=== PATIENT | male | born 1950 | race Caucasian/White ===

== ENCOUNTER 2020-09-17 09:23 | Emergency (ER) | payer OTHER, SELFPAY ==
[2020-09-17 09:29] VITALS: BP 152/92; PULSE 69; RESP 18; TEMP 36.7; O2SAT 97
--- NOTE | 2020-09-17 09:29 | W.ED.GENAD ---
Discharge Plan Disposition Patient Disposition: HOME Condition: Stable Discharge Details Clinical Impression: Viral URI with cough Primary Care Provider: Valentino Bravo ED Provider: Gracia Crandall Home Meds and New Rx's Prescriptions: New benzonatate [Tessalon Perles] 100 mg capsule 100 mg PO TID PRN (Reason: cough) Qty: 14 RF: 0 amoxicillin-pot clavulanate [Augmentin] 875-125 mg tablet 1 tab PO BID 10 Days Qty: 20 RF: 0 No Action multivitamin Tablet 1 tab PO QAM RF: 0 metoprolol succinate 50 mg Tablet Extended Release 24 Hr 50 mg PO DAILY RF: 0 aspirin [Aspir-81] 81 mg Tablet,Delayed Release (Dr/Ec) 81 mg PO DAILY RF: 0 opkxlmiq-axqu-hlw2-C-garry-bosw [Glucosamine-Chondroitin 3X] 750-625-30 mg Tablet 1 tab PO DAILY RF: 0 Discharge Instructions Instructions: Upper Respiratory Infection (ED), Acute Cough (ED) Additional Instructions: Drink plenty of fluids and get plenty of rest. Take the Tessalon Perles as needed and directed for coughing. If you have no relief or worsening of symptoms in the next few days, you can start the antibiotics. Follow-up with your primary care doctor in 1 week. Return to the emergency department with any worsening or new concerning symptoms. Discharge Data Discharge Physician: Gracia Crandall Medical Decision Making 70-year-old male with a history of atrial fibrillation, hypertension, hyperlipidemia presents for nasal congestion, rhinorrhea, productive cough, intermittent chest tightness and shortness of breath with left-sided abdominal pain which is now resolved for the past few days. Mainly concerned about his symptoms affecting his elderly hssksg-gz-ekr who lives with him. Patient appears nontoxic. He has slightly diminished breath sounds throughout but no rhonchi or wheezing. Suspect most likely viral illness. As pt c/o LUQ abd pain which is now resolved, consider LLL pneumonia. Considering his age and history, will obtain an EKG. Will also obtain a COVID swab. If all unremarkable, recommend symptomatic treatment for likely viral illness with fluids, rest and Tessalon Perles. EKG notes a rate of 63, sinus with no acute ST-T wave ischemic findings. Chest x-ray reviewed and negative. Patient reassessed and still remains comfortable and denies any chest pain or shortness of breath or abdominal pain at this time. Discussed that this is likely viral process. We will send home with Augmentin if symptoms worsen and Tessalon Perles for cough. Advised to follow up with the primary care doctor for re-evaluation. Usual and customary return precautions given prior to discharge. Medical Records Medical records reviewed: Yes I reviewed the patient's medical records. Imaging Data Radiologic Study: Radiologist's impression: XR PORTABLE CHEST AP CLINICAL HISTORY: cough, chills, r/o pneumonia. TECHNIQUE: 2D digital imaging was performed. COMPARISON: No exams were available for comparison FINDINGS: Mild cardiomegaly.. The mediastinum is not widened. There are no infiltrates nor pleural effusions. No pulmonary edema. No pneumothorax. IMPRESSION: No acute pulmonary findings on this single AP portable view of the chest. Mild cardiomegaly. No pulmonary edema. ECG Data Attestation: I personally reviewed and interpreted this ECG (s) as follows: Interpretation: Rate of 63, sinus, no acute ST elevation or depression. AZ 201. QRS 127. QTc 421. HPI General Mode of arrival: ambulatory. Date/Time Provider Initiated Documentation: 09/17/20 09:24. Limitations to Documentation: no limitations. Information obtained by: patient. HPI Narrative: Patient is a 70-year-old male with a history of atrial fibrillation, hypertension, hyperlipidemia presents for nasal congestion and runny nose, productive cough, intermittent shortness of breath and chest tightness and intermittent left-sided abdominal pain for the past 2 to 3 days. He denies any abdominal pain at present. Patient states his symptoms started with nasal congestion and then progressed to cough. She also states he has had a diminished appetite and loose stools. He admits to chills but denies any known fever. He states he has been coughing up sputum but has not looked at the color. He states he was mainly concerned about his symptoms as his elderly bchjec-ep-fpg lives with him and he did not want to get him sick. He states he is followed at the OR. He denies any headache, neck pain, vomiting, loss of sense of smell or taste. Related Data Home Medications Medication Instructions Recorded Confirmed amoxicillin-pot clavulanate 1 tab PO BID 10 Days #20 tab 09/17/20 [Augmentin] aspirin [Aspir-81] 81 mg PO DAILY 09/17/20 09/17/20 benzonatate [Tessalon Perles] 100 mg PO TID PRN #14 cap 09/17/20 rhzwihha-hdmy-fqy2-C-garry-bosw 1 tab PO DAILY 09/17/20 09/17/20 [Glucosamine-Chondroitin 3X] metoprolol succinate 50 mg PO DAILY 09/17/20 09/17/20 multivitamin 1 tab PO QAM 09/17/20 09/17/20 Previous Rx's Medication Instructions Recorded amoxicillin-pot clavulanate 1 tab PO BID 10 Days #20 tab 09/17/20 [Augmentin] benzonatate [Tessalon Perles] 100 mg PO TID PRN #14 cap 09/17/20 Allergies Allergy/AdvReac Type Severity Reaction Status Date / Time morphine AdvReac shakey Unverified 09/17/20 09:37 Review of Systems All systems reviewed & are unremarkable except as noted in HPI and below Constitutional Constitutional: Reports as per HPI, Denies chills and Denies fever(s) Eyes Eyes: Denies blurry vision ENT Ears, Nose, Mouth, and Throat: Denies dizziness, Denies sore throat and Denies throat swelling Cardiovascular Cardiovascular: Denies chest pain and Reports dyspnea Respiratory Respiratory: Reports cough and Reports dyspnea Gastrointestinal Gastrointestinal: Denies abdominal pain, Denies diarrhea and Denies vomiting Genitourinary Genitourinary: Denies hematuria and Denies dysuria Musculoskeletal Musculoskeletal: Denies back pain and Denies numbness Integumentary/Breasts Skin/Breast: Denies lesions and Denies rash Neurologic Neurologic: Denies dizziness, Denies localized weakness and Denies numbness Allergic/Immunologic Allergic/Immunologic: Denies throat swelling [facility] Medical History (Updated 09/17/20 @ 11:19 by Gracia Crandall DO) Atrial fibrillation High cholesterol HTN (hypertension) Surgical History (Updated 09/17/20 @ 10:10 by Gracia Crandall DO) History of hernia repair History of tonsillectomy Social History Smoking/Tobacco Use Status: Never Smoking risk assessment performed?: Yes Alcohol Intake: current Alcohol Intake frequency: 0-2 drinks per day Drug use: Never Do you feel safe at home: Yes Do you feel safe in your relationship?: Yes Exam Const General: cooperative, healthy appearing and no acute distress Orientation: alert, awake and oriented x3 HENMT Head: normal to inspection Ears: hearing grossly normal bilaterally, external ears normal and TM's normal bilaterally General nose exam: external nose normal Face and sinus: normal facial exam Mouth: oral mucosae normal Teeth and gingiva: dentition normal Throat: posterior oropharynx normal Eyes General: appearance normal, both eyes and all related structures Eyelids: eyelids normal EOM: EOM intact bilaterally Neck Neck: normal visual inspection Lymphatic: no lymphadenopathy noted Chest Chest: normal inspection of the chest Resp Effort & Inspection: normal respiratory effort and able to speak in complete sentences Auscultation: diminished lung sounds bilaterally throughout (slightly diminished throughout) Cardio Rate: regular rate Rhythm: regular rhythm GI Inspection: normal to inspection Palpation: soft, not firm, no guarding, no hepatosplenomegaly, no masses and nontender Auscultation: normal bowel sounds Back/Spine/Pelvis Thoracic/Lumbar Spine: thoracic and lumbar spine normal to inspection Skin General skin exam: no rashes or lesions noted Neuro General: patient alert and patient awake Cognition: normal cognition Speech: speech normal Gait: normal gait Motor: muscle tone normal throughout Sensory Exam: no sensory deficits noted Extrem General: normal to inspection, full ROM, capillary refill normal and no edema Psych Appearance: grossly normal Mental Status: mental status grossly normal Speech and Movement: speech and movement normal Affect: normal affect Thought Process: normal
--- NOTE | 2020-09-17 09:45 | DI.RAD_ITS ---
EXAM: XR PORTABLE CHEST AP CLINICAL HISTORY: cough, chills, r/o pneumonia. TECHNIQUE: 2D digital imaging was performed. COMPARISON: No exams were available for comparison FINDINGS: Mild cardiomegaly.. The mediastinum is not widened. There are no infiltrates nor pleural effusions. No pulmonary edema. No pneumothorax. IMPRESSION: No acute pulmonary findings on this single AP portable view of the chest. Mild cardiomegaly. No pulmonary edema. DATA REPOSITORY: RADIATION DOSE DELIVERED:
--- NOTE | 2020-09-17 09:45 | RT.EKG_ITS ---
APPROVED REPORT Exam: Resting ECG Patient Location: E HR:63 bpm ECG Measurements Heart Rate 63 AXIS WI 201 P 47 QRSd 127 QRS -33 QT 412 T 13 QTc 421 Conclusion Sinus rhythm...normal P axis, V-rate 60- 99 Nonspecific intraventricular conduction delay...QRSd >115mS, not LBBB/RBBB I have reviewed and interpreted ECG and agree with software generated interpretation.
[2020-09-17 11:38] VITALS: BP 152/92; PULSE 69; RESP 18; TEMP 36.7; O2SAT 97
--- OUTSIDE RECORDS SUMMARY | 2020-09-17 11:42 | XMS_ITS | Encounter Summary ---
:1950 Author Organization Department [facility] Address [address] [place] [id number] Care Team Providers Name Role Phone BUCKY RABAGO Primary Care Provider Unavailable Insurance Providers: All historical and current Section Date Range: From patient's date of to the date document was created.This section includes the names of all active insurance providers for the patient. Insurance Type of Plan Start of End of Group Member Insurance Policy P atient's Provider Coverage Name Policy Policy Number ID Provider's Shelby's Relationship Coverage Coverage Telephone Name to Policy Number Shelby MEDICARE MEDICARE PART Jul 15, PART A [id number] [phone] STEPHANIE JerriInder PATIENT (WNR) (M) A 2016 [id number] [place] MEDICARE MEDICARE PART Jul 15, PART A [id number] [phone] STEPHANIE GuthrieInder PATIENT (WNR) (M) A 2016A 1 [place] MEDICARE MEDICARE PART Jul 15, PART A [id number] STEPHANIE JerriW PATIENT (WNR) (M) A 2016A 1 ILLIAM Selected Encounter This section includes the information on record at [place] for the Encounter. Date/Time Encounter Type Encounter Description Reason Provider Source Nov 16, 2019 09:32 Outpatient Encounter TELEPHONE/MEDICINE AM IHE Encounter Template Text not used by [place] Plan of Treatment: Future Appointments (+ 6 months) and Future Tests (+/- 45 days) The Plan of Treatment section includes future care activities for the patient from all [place] treatment facilities. This section includes future appointments and future orders which are active, pending or scheduled.Future Appointments This section includes appointments that were scheduled to occur 6 months from the date of the Encounter, up to a maximum of 20 appointments. The data comes from all [facility]. Appointment Date/Time Appointment Type Appointment Facili ty Name Apr 04, 2020 09:30 AM AMBULATORY - MEDICINE [facility] Apr 26, 2020 11:30 AM AMBULATORY - NONE [facility] Pathology Reports: +/- 30 days of the encounter Pathology Reports For cases when an order for pathology services may have been completed prior to the date of the Encounter, the report list includes the Pathology Reports that were completed up to 30 days before date of the Encounter. For cases when an order for pathology services may have been completed after the date of the Encounter, the report list also includes the Pathology Reports that were completed up to 30 days after date of the Encounter. The data comes from all [facility] facilities. Date/Time Pathology Report Provider Source Nov 16, 2019 01:54 PM LR SURGICAL PATHOLOGY REPORT: RADHA MOSER Trina LOCAL TITLE: LR SURGICAL PATHOLOGY REPORT [facility] STANDARD TITLE: PATHOLOGY REPORT DATE OF NOTE: NOV 16, 2019@13:54:10 ENTRY DATE: NOV 16, 2019@13:54:10 AUTHOR: RADHA MOSER EXP COSIGNER: URGENCY: STATUS: COMPLETED $APHDR Reporting Lab: [facility] [CLIA# [id number]] [address], [place] [phone] - - - - - - - - - - - - - - - - - - - - - - - - - - - - - - - - - - - - - - - - MEDICAL RECORD SURGICAL PATHOLOGY - - - - - - - - - - - - - - - - - - - - - - - - - - - - - - - - - - - - - - - - PATHOLOGY REPORT Accession No. SP [id number] - - - - - - - - - - - - - - - - - - - - - - - - - - - - - - - - - - - - - - - - $TEXT Submitted by: CHRISTINE HAYNES Date obtained: Nov 15, 2019 11:49 - - - - - - - - - - - - - - - - - - - - - - - - - - - - - - - - - - - - - - - - Specimen (Received Nov 15, 2019 11:50): 2mm REMNANT; C - ADENOMA? - - - - - - - - - - - - - - - - - - - - - - - - - - - - - - - - - - - - - - - - BRIEF CLINICAL HISTORY: None given - - - - - - - - - - - - - - - - - - - - - - - - - - - - - - - - - - - - - - - - PREOPERATIVE DIAGNOSIS: None given - - - - - - - - - - - - - - - - - - - - - - - - - - - - - - - - - - - - - - - - OPERATIVE FINDINGS: None given - - - - - - - - - - - - - - - - - - - - - - - - - - - - - - - - - - - - - - - - POSTOPERATIVE DIAGNOSIS: Surveillance Surgeon/physician: SEBASTIEN HAYNES MD =-=-=-=-=-=-=-=-=-=-=-=-=-=- =-=-=-=-=-=-=-=-=-=-=-=-=-=-=-=-=-=-=-=-=-=-=-=-=-= - - - - - - - - - - - - - - - - - - - - - - - - - - - - - - - - - - - - - - - - PATHOLOGY REPORT Accession No. SP [id number] - - - - - - - - - - - - - - - - - - - - - - - - - - - - - - - - - - - - - - - - GROSS DESCRIPTION: Name Label: Grady Villegas Paperwork: Grady Villegas Cassette: [id number]---[id number],WILLIAM--405 Specimen is labeled: 1 C Received in formalin is a piece of glisteni ng pale gallegos tissue, 0.4 x 0.1 x 0.1 cm. Submitted entirely in 1 cassette [id number]---[id number],WILLIAM--405 11/15/2019 Microscopic exam: DIAGNOSIS: Cecum, biopsy: Mucosa with mild reactive changes, negative for remnants of adenomatous polyp The attending pathologist whos e signature appears on this report has reviewed all diagnostic slides and has edit ed the gross and/or microscopic portion of this report in rende ring the final pathologic diagnosis. [address] [address] CPT: 03191 /elizaebth/ RADHA MOSER pathologist Signed Nov 16, 2019@13:54 Performing Laboratory: Surgical Pathology Report Performed By: [facility] [CLIA# [id number]] [address] [place] [phone] $FTR - - - - - - - - - - - - - - - - - - - - - - - - - - - - - - - - - - - - - - - - (End of report) RADHA MOSER MD ars Date Nov 16, 2019 - - - - - - - - - - - - - - - - - - - - - - - - - - - - - - - - - - - - - - - - GRADY VILLEGAS STANDARD FORM 515 ID:[id number] SEX:M :1950 AGE: 69 LO C:SDM END PC P: Bucky Rabago DO /elizabeth/ RADHA MOSER pathologist Signed: 11/16/2019 13:54 Encounter Notes: All associated encounter notes This section contains the clinical notes associated to the Encounter. Date/Time Encounter Note(s) Provider Source Nov 16, 2019 09:32 AM TELEPHONE ENCOUNTER NOTE: VIMAL AUSTIN LOCAL TITLE: POST-OP TELEPHONE NOTE [facility] STANDARD TITLE: TELEPHONE ENCOUNTER NOTE DATE OF NOTE: NOV 16, 2019@09:32 ENTRY DATE: NOV 16, 2019@09:32:17 AUTHOR: CUBA AUSTIN EXP COSIGNER: URGENCY: STATUS: COMPLETED Work Phone:NONE Cell Date of Procedure:11/15/2019 Procedure:colonoscopy Message was left for patient Yes: on home number unable to leave detailed message on cell Provider notified regarding patient condition? N o Comment: Does the patient have procedural pain? IV Site Pain,drainage,redness or swelling? Comments: Gastrointestinal Tolerating regular diet Nausea or vomiting Bowel movement Pain,bleeding,diarrhea Comment: /elizabeth/ CUBA AUSTIN RN Signed: 11/16/2019 09:41
--- OUTSIDE RECORDS SUMMARY | 2020-09-17 11:42 | XMS_ITS | Encounter Summary ---
:1950 Author Organization Department [facility] Address [address] [place] [id number] Care Team Providers Name Role Phone BUCKY [...] MEDICARE MEDICARE PART Jul 15, PART A [id number] STEPHANIE JerriInder PATIENT (WNR) (M) A 2016 [id number] [place]LL[place] MEDICARE MEDICARE PART Jul 15, PART A [id number] [phone] STEPHANIE JerriInder PATIENT (WNR) (M) A 2016 86A 1 [place] MEDICARE MEDICARE PART Jul 15, PART A [id number] STEPHANIE JerriW PATIENT (WNR) (M) A 2016 86A 1 ILLIAM Selected Encounter This section includes the information on record at [place] for the Encounter. Date/Time Encounter Type Encounter Reason Provider Source Description Nov 16, 2019 01:54 Outpatient EVENT (HISTORICAL) OWEN MOSER AN R PM Encounter [facility] Encounter Template Text not used by [place] Plan of Treatment: Future Appointments (+ 6 months) and Future Tests (+/- 45 days) The Plan of Treatment section includes future care activities for the patient from all [place] treatment facilities. This section includes future appointments and future orders which are active, pending or scheduled.Future Appointments This section includes appointments that were scheduled to occur 6 months from the date of the Encounter, up to a maximum of 20 appointments. The data comes from all [facility]. Appointment Date/Time Appointment Type Appointment Facili ty Name Apr 04, 2020 09:30 AM AMBULATORY - MEDICINE [facility] Apr 26, 2020 11:30 AM AMBULATORY - NONE [facility] [place] Pathology Reports: +/- 30 days of the [...] the Encounter. The data comes from all [place] treatment facilities. Date/Time Pathology Report Provider Source Nov 16, 2019 01:54 PM LR SURGICAL PATHOLOGY REPORT: RADHA MOSER [facility] LOCAL TITLE: LR SURGICAL PATHOLOGY REPORT [facility] STANDARD TITLE: PATHOLOGY REPORT DATE OF NOTE: NOV 16, 2019@13:54:10 ENTRY DATE: NOV 16, 2019@13:54:10 AUTHOR: RADHA MOSER EXP COSIGNER: URGENCY: STATUS: COMPLETED $APHDR Reporting Lab: [facility] [CLIA# [id number]] [address], [place] [phone] - - - - - - - [...] Label: Grady Villegas Paperwork: Grady Villegas Cassette: [id number]---[id number],WILLIAM--405 Specimen is labeled: 1 C Received in formalin is a piece of glisteni ng pale gallegos tissue, 0.4 x 0.1 x 0.1 cm. Submitted entirely in 1 cassette [id number]---[id number],WILLIAM--405 11/15/2019 Microscopic exam: DIAGNOSIS: Cecum, biopsy: Mucosa with mild reactive changes, negative for remnants of adenomatous polyp The attending pathologist whos e signature appears on this report has reviewed all diagnostic slides and has edit ed the gross and/or microscopic portion of this report in rende ring the final pathologic diagnosis. [address] [address] CPT: 81919 /elizabeth/ RAHDA MOSER pathologist Signed Nov 16, 2019@13:54 Performing Laboratory: Surgical Pathology Report Performed By: [facility] [CLIA# [id number]] [address] [place] [phone] $FTR - - - - - - [...] - - GRADY VILLEGAS STANDARD FORM 515 ID:[id number] SEX:M :1950 AGE: 69 LO C:SDM END PC P: Bucky Rabago DO /elizabeth/ RADHA MOSER pathologist Signed: 11/16/2019 13:54 Encounter Notes: All associated encounter notes This section contains the clinical notes associated to the Encounter. Date/Time Encounter Note(s) Provider Source Nov 16, 2019 01:54 PM PATHOLOGY REPORT: RADHA MOSER [facility] LOCAL TITLE: LR SURGICAL PATHOLOGY REPORT [facility] STANDARD TITLE: PATHOLOGY REPORT DATE OF NOTE: NOV 16, 2019@13:54:10 ENTRY DATE: NOV 16, 2019@13:54:10 AUTHOR: RADHA MOSER EXP COSIGNER: URGENCY: STATUS: COMPLETED $APHDR Reporting Lab: [facility] [CLIA# [id number]] [address], [place] [phone] - - - - - - - [...] Label: Grady Villegas Paperwork: Grady Villegas Cassette: [id number]---[id number] Specimen is labeled: 1 C Received in formalin is a piece of glisteni ng pale gallegos tissue, 0.4 x 0.1 x 0.1 cm. Submitted entirely in 1 cassette [id number]---[id number],WILLIAM--405 11/15/2019 Microscopic exam: DIAGNOSIS: Cecum, biopsy: Mucosa with mild reactive changes, negative for remnants of adenomatous polyp The attending pathologist elysia e signature appears on this report has reviewed all diagnostic slides and has edit ed the gross and/or microscopic portion of this report in rende ring the final pathologic diagnosis. [address] [address] CPT: [id number] /elizabeth/ RADHA MOSER pathologist Signed Nov 16, 2019@13:54 Performing Laboratory: Surgical Pathology Report Performed By: [facility] TREJO [facility] [CLIA# [id number]] [address] [place] [phone] $FTR - - - - - - [...] - - GRADY VILLEGAS STANDARD FORM 515 ID:[id number] SEX:M :1950 AGE: 69 LO C:SDM END PC P: Bucky Rabago DO /elizabeth/ RADHA MOSER pathologist Signed: 11/16/2019 13:54
--- OUTSIDE RECORDS SUMMARY | 2020-09-17 11:42 | XMS_ITS | Encounter Summary ---
:1950 Author Organization Department [facility] Address [address] [place] [id number] Care Team Providers Name Role Phone HIMABUCKY Primary Care Provider Unavailable Insurance Providers: All [...] MEDICARE MEDICARE PART Jul 15, PART A [id number] Inder WADE PATIENT (WNR) (M) A 2016 [id number] 00 ILLIAM MEDICARE MEDICARE PART Jul 15, PART A [id number] KWABENAAURY JerriW PATIENT (WNR) (M) A 2016A 1 ILLIAM MEDICARE MEDICARE PART Jul 15, PART A [id number] STEPHANIE GuthrieW PATIENT (WNR) (M) A 2016A 1 ILLIAM Selected Encounter This section includes the information on record at [place] for the Encounter. Date/Time Encounter Type Encounter Description Reason Provider Source Apr 12, 2020 09:54 Outpatient Encounter TELEPHONE TRIAGE AM IHE Encounter Template Text not used by [facility] Plan of Treatment: Future Appointments (+ 6 months) and Future Tests (+/- 45 days) The Plan of Treatment section includes future care activities for the patient from all [place] treatment facilities. This section includes future appointments and future orders which are active, pending or scheduled.Future Appointments This section includes appointments that were scheduled to occur 6 months from the date of the Encounter, up to a maximum of 20 appointments. The data comes from all [facility]. Appointment Date/Time Appointment Type Appointment Facili ty Name Apr 26, 2020 11:30 AM AMBULATORY - NONE [facility] Jun 15, 2020 09:30 AM [facility] Jul 16, 2020 10:30 [facility] Jul 23, 2020 10:00 AM AM[facility]UL[facility]ORY - NONE [facility] Lab Results: +/- 30 days of the encounter This section includes the Chemistry and Hematology Lab Results on record with [place] for the patient. Radiology Reports and Pathology Reports are provided separately, in subsequent sections.Lab Results This section contains the Chemistry/Hematology Results that were resulted 30 days before or 30 days after the date of the Encounter. Date/Time Source Result Type Result - Unit Interpretation Reference Range Comment Apr 26, 2020 11:23 AM [facility] CBC NO DIFF Spe cimen Type: BLOOD No comment enter ed. Ordering Provide r: CINDA GODWIN Report Released Date/Time: Oct 05, 2019 03:19 PM Reporting Lab: [facility] [address] [facility] [address] Performing Lab: [facility] [address] [facility] [address] WBC 6.1 10*3/uL 4.5-11.0 RBC 4.62 10*6/uL 4.23-5.66 HGB 15.4 g/dl 12.8-17 HEMATOCRIT 46.7 % 39.2-50.4 MCV 101.1 fl H 82-99 MCH 33.3 pg H 26.2-32.6 MCHC 33.0 g/dl 30.8-35.1 PLT 220 10*3/uL 140-360 MPV 11.1 fl 9.2-12.4 RDW 12.1 % 12.0-16.0 Apr 26, 2020 11:23 [facility] P4 GLU,BUN,CREAT,LYTES,CA Spe cimen Type: PLASMA AM [facility] No comment enter ed. Ordering Provide r: CINDA GODWIN Report Released Date/Time: Oct 05, 2019 03:19 PM Reporting Lab: [facility] [address] [facility] [address] Performing Lab: [facility] [address] [facility] [address] UREA NITROGEN 30 mg/dL H 7-25 SODIUM 139 mmol/L 135-145 POTASSIUM 4.1 mmol/L 3.5-5.0 CHLORIDE 106 mmol/L 100-110 CARBON DIOXIDE 26 mmol/L 20-30 ANION GAP 7 mmol/L 4-16 GLUCOSE 102 mg/dL H 65-100 CREATININE 0.84 mg/dl 0.5-1.5 CALCIUM 9.1 mg/dL 8.5-10.5 eGFR 91 mL/min >60 Apr 26, 2020 11:23 AM [facility] LIVER PROFILE Spe cimen Type: PLASMA No comment enter ed. Ordering Provide r: CITLALICINDA P Report Released Date/Time: Oct 05, 2019 03:19 PM Reporting Lab: [facility] [address] [facility] [address] Performing Lab: [facility] [address] [facility] [address] PROTEIN, TOTAL 6.7 g/dL 6.0-8.5 ALBUMIN 3.9 g/dL 3.2-5.0 BILIRUBIN, TOTAL 0.9 mg/dL 0.2-1.2 ALKALINE PHOSPHATASE 53 U/L 40-150 ALT(SGPT) 23 U/L 7-52 AST(SGOT) 26 U/L 5-34 FIB-4 SCORE 1.65 INDEX <2.67 Apr 26, 2020 11:23 [facility] LIPOPROTEIN CHOLESTEROL Speci men Type: PLASMA AM [facility] FRACT. PANEL No comment enter ed. Ordering Provide r: VOCINDA P Report Released Date/Time: Oct 05, 2019 03:19 PM Reporting Lab: [facility] [address] [facility] [address] Performing Lab: [facility] [address] [facility] [address] CHOLESTEROL 151 mg/dL 0-199 TRIGLYCERIDE 122 mg/dL 0-149 HDL CHOLESTEROL 49 mg/dL >40 LDL CHOLESTEROL (CALC) 78 mg/dl 0-129 Apr 26, 2020 T[place] GLYCOHEMOGLOBIN (A1C Specimen Ty pe: BLOOD 11:23 AM [facility] ONLY) Comment: Refere nce Ranges: 4.0 - 5.6 normal 5.7 - 6.4 pre-diabetes >=6.5% diabetic range. If patient has Not Been diagnosed see [place]-D[place] Diabetes Guidelines for more guidance. http://www.healthquality.[place].gov/g harish/CD/shea youngblood/ Target A1C values should be individualized. Better understanding of A1C test result accuracy is essential if clinicians are to interpret results for Veterans, and discuss treatmen t options throug h the process of Shared Decision Making. Testing performed by [facility] certified [employer]. The Busby HgA1c assay should not be used to diagnose or monitor diabetes in patients with altered red cell lifespan such as homozygous hemoglobin variant Hb SC, HbF >5% and hemolytic anemia Heterozygous hemoglobin variants do not affect this assay, HbAS, HbAC, HbAD, HbAE, HbA2. Ordering Provide r: CINDA GODWIN Report Released Date/Time: Oct 05, 2019 03:19 PM Reporting Lab: [facility] [address] [facility] [address] Performing Lab: [facility] [address] [facility] [address] HEMOGLOBIN A1C 5.0 % 4.0-5.6 Encounter Notes: All associated encounter notes This section contains the clinical notes associated to the Encounter. Date/Time Encounter Note(s) Provider Source Apr 12, 2020 09:54 AM ADMINISTRATIVE NOTE: AYUSH ALAMO [facility] LOCAL TITLE: Has Admin Note STANDARD TITLE: ADMINISTRATIVE NOTE DATE OF NOTE: APR 12, 2020@09:54 ENTRY DATE: APR 12, 2020@09:54:11 AUTHOR: AYUSH ALAMO EXP COSIGNER: URGENCY: STATUS: COMPLETED Reason for call Clinic Name: [facility] 1st call lab appt is needed Apr 19 per RTC /elizabeth/ AYUSH ALAMO MSA Signed: 04/12/2020 09:55
--- OUTSIDE RECORDS SUMMARY | 2020-09-17 11:42 | XMS_ITS ---
:1950 Author Organization [facility] Address [address] [place] [address] Care Team Providers Name Role Phone BUCKY [...] MEDICARE MEDICARE PART Jul 15, PART A [id number] BULLAURY JerriInder PATIENT (WNR) (M) A 2016 [id number] 00 ILLIA MEDICARE MEDICARE PART Jul 15, PART A [id number] B[place]OC KW PATIENT (WNR) (M) A 2016A 1 [place]LL[place] MEDICARE MEDICARE PART Jul 15, PART A [id number] BULLOC KW PATIENT (WNR) (M) A 2016A 1 ILLIAM Selected Encounter This section includes the information on record at [place] for the Encounter. Date/Time Encounter Type Encounter Reason Provider Source Description Apr 04, 2020 OFFICE OR OTHER PRIMARY ICD-10-CM E78.5 ARCENIO RABAGO 09:30 AM OUTPATIENT VISIT CARE/MEDICINE Hyperlipidemia, AEL FOR THE unspecified with EVALUATION AND Provider Comments: MANAGEMENT OF AN HLD - ESTABLISHED Hyperlipidemia (SCT PATIENT, WHICH [id number]) REQUIRES AT LEAST 2 OF THESE 3 GUILLEN COMPONENTS: A DETAILED HISTORY; A DETAILED EXAMINATION; MEDICAL DECISION MAKING OF MODERATE COMPLEXITY. COUNSELING AND/OR COORDINATION OF CARE WITH OTHER PHYSICIANS, OTHER QUALIFIED HEALTH CLINICAL PARTNER, OR AGENCIES ARE PROVIDED CONSISTENT WITH THE NATURE OF THE PROBLEM(S) AND THE PATIENT'S AND/OR FAMILY'S NEEDS. USUALLY, THE PRESENTING PROBLEM(S) ARE OF MODERATE TO HIGH SEVERITY. TYPICALLY, 25 MINUTES ARE SPENT [id number] WITH THE PATIENT AND/OR FAMILY. [facility] Encounter Template Text not used by [facility] Assessments - Encounter Diagnoses This section includes the primary and secondary diagnoses documented forthe Encounter. Date/Time Primary/Secondary Diagnosis Name Provider Source Diagnosis Apr 04, 2020 PRIMARY Hyperlipidemia, KYLEIGH RABAGOBU RY 04:31 PM unspecified [facility] Apr 04, 2020 SECONDARY Subsequent non-ST KYLEIGH RABAGO BURY 04:31 PM elevation (NSTEMI) [facility] myocardial infarction Apr 04, 2020 SECONDARY Thoracoabdominal KYLEIGH RABAGOB URY 04:31 PM aortic aneurysm, [facility] without rupture Apr 04, 2020 SECONDARY Unspecified atrial KYLEIGH RABAGO SBURY 04:31 PM fibrillation [facility] Plan of Treatment: Future Appointments (+ 6 months) and Future Tests (+/- 45 days) The Plan of Treatment section includes future care activities for the patient from all [place] treatment facilities. This section includes future appointments and future orders which are active, pending or scheduled.Future Appointments This section includes appointments that were scheduled to occur 6 months from the date of the Encounter, up to a maximum of 20 appointments. The data comes from all [facility]. Appointment Date/Time Appointment Type Appointment Facili ty Name Apr 26, 2020 11:30 AM AMBULATORY - NONE [facility] Jun 15, 2020 09:30 [facility] Jul 16, 2020 10:30 AM [facility]ORY - NONE [facility] Jul 23, 2020 10:00 AM AMBULATORY - NONE [facility] Lab Results: +/- 30 days of the encounter This section includes the Chemistry and Hematology Lab Results on record with [facility] for the patient. Radiology Reports and Pathology Reports are provided separately, in subsequent sections.Lab Results This section contains the Chemistry/Hematology Results that were resulted 30 days before or 30 days after the date of the Encounter. Date/Time Source Result Type Result - Unit Interpretation Reference Range Comment Apr 26, 2020 11:23 AM [facility] [facility] CBC NO DIFF Spe cimen Type: BLOOD No comment enter ed. Ordering Provide r: CINDA GODWIN Report Released Date/Time: Oct 05, 2019 03:19 PM Reporting Lab: [facility] [address] [facility] [address] Performing Lab: [facility] [address] [facility] [address] WBC 6.1 10*3/uL 4.5-11.0 RBC 4.62 10*6/uL 4.23-5.66 HGB 15.4 g/dl 12.8-17 HEMATOCRIT 46.7 % 39.2-50.4 MCV 101.1 fl H 82-99 MCH 33.3 pg H 26.2-32.6 MCHC 33.0 g/dl 30.8-35.1 PLT 220 10*3/uL 140-360 MPV 11.1 fl 9.2-12.4 RDW 12.1 % 12.0-16.0 Apr 26, 2020 11:23 [facility] [place] P4 GLU,BUN,CREAT,LYTES,CA Spe cimen Type: PLASMA AM [facility] No comment enter ed. Ordering Provide r: CINDA GODWIN Report Released Date/Time: Oct 05, 2019 03:19 PM Reporting Lab: [facility] [address] [facility] [address] Performing Lab: [facility] [address] [facility] [address] UREA NITROGEN 30 mg/dL H 7-25 SODIUM 139 mmol/L 135-145 POTASSIUM 4.1 mmol/L 3.5-5.0 CHLORIDE 106 mmol/L 100-110 CARBON DIOXIDE 26 mmol/L 20-30 ANION GAP 7 mmol/L 4-16 GLUCOSE 102 mg/dL H 65-100 CREATININE 0.84 mg/dl 0.5-1.5 CALCIUM 9.1 mg/dL 8.5-10.5 eGFR 91 mL/min >60 Apr 26, 2020 11:23 AM [facility] LIVER PROFILE Spe cimen Type: PLASMA No comment enter ed. Ordering Provide r: CINDA GODWIN Report Released Date/Time: Oct 05, 2019 03:19 PM Reporting Lab: [facility] [address] [facility] [address] Performing Lab: [facility] [address] [facility] [address] PROTEIN, TOTAL 6.7 g/dL 6.0-8.5 ALBUMIN 3.9 g/dL 3.2-5.0 BILIRUBIN, TOTAL 0.9 mg/dL 0.2-1.2 ALKALINE PHOSPHATASE 53 U/L 40-150 ALT(SGPT) 23 U/L 7-52 AST(SGOT) 26 U/L 5-34 FIB-4 SCORE 1.65 INDEX <2.67 Apr 26, 2020 11:23 [facility] LIPOPROTEIN CHOLESTEROL Speci men Type: PLASMA AM [facility] FRACT. PANEL No comment enter ed. Ordering Provide r: CINDA GODWIN Report Released Date/Time: Oct 05, 2019 03:19 PM Reporting Lab: [facility] [address] [facility] [address] Performing Lab: [facility] [address] [facility] [address] CHOLESTEROL 151 mg/dL 0-199 TRIGLYCERIDE 122 mg/dL 0-149 HDL CHOLESTEROL 49 mg/dL >40 LDL CHOLESTEROL (CALC) 78 mg/dl 0-129 Apr 26, 2020 [facility] GLYCOHEMOGLOBIN (A1C Specimen Ty pe: BLOOD 11:23 AM [facility] ONLY) Comment: Refere nce Ranges: 4.0 - 5.6 normal 5.7 - 6.4 pre-diabetes >=6.5% diabetic range. If patient has Not Been diagnosed see [place]-DOD Diabetes Guidelines for more guidance. http://www.healthquality.va.gov/g uidelines/CD/shea shanteles/ Target A1C values should be individualized. Better understanding of A1C test result accuracy is essential if clinicians are to interpret results for Veterans, and discuss treatmen t options throug h the process of Shared Decision Making. Testing performed by [employer] certified [employer]. The [employer] HgA1c assay should not be used to diagnose or monitor diabetes in patients with altered red cell lifespan such as homozygous hemoglobin variant Hb SC, HbF >5% and hemolytic anemia Heterozygous hemoglobin variants do not affect this assay, HbAS, HbAC, HbAD, HbAE, HbA2. Ordering Provide r: CINDA GODWIN Report Released Date/Time: Oct 05, 2019 03:19 PM Reporting Lab: [facility] [address] [facility] [address] Performing Lab: [facility] [address] [facility] [address] HEMOGLOBIN A1C 5.0 % 4.0-5.6 Social History: Smoking Status (Most current) and Tobacco Use (All prior to encounter date) This section includes the most current, and the historical, smoking and tobacco-related health factors from the [place] facility where the Encounter took place.Current Smoking Status This section includes the most current smoking, or tobacco-related health factor, from the [place] facility where the Encounter took place. Date/Time Current Smoking Status Comment Facility Oct 04, 2019 10:30 AM [place]-TOBACCO NEVER USED [facility] Tobacco Use History This section includes a history of the smoking, or tobacco-related health factors, that were collected on or before the date of the Encounter. The data comes from the [place] facility where the Encounter took place. Date/Time Smoking Status/Tobacco Use Comment [facility] Apr 01, 2018 11:56 AM VA-TOBACCO FORMER USER [facility] Apr 01, 2018 11:56 AM VA-TOBACCO QUIT 15 YRS OR MORE [facility] Encounter Notes: All associated encounter notes This section contains the clinical notes associated to the Encounter. Date/Time Encounter Note(s) Provider Source Apr 27, 2020 04:00 PM PRIMARY CARE LETTERS: CINDA GODWIN [facility] LOCAL TITLE: [facility] PATIENT LAB RESULTS LETTER STANDARD TITLE: PRIMARY CARE LETTERS DATE OF NOTE: APR 27, 2020@16:00 ENTRY DATE: APR 27, 2020@16:00:16 AUTHOR: CINDA GODWIN EXP COSIGNER: URGENCY: STATUS: COMPLETED [facility] PATIENT LAB RESULTS LETTER Has ADDEND A DEPARTMENT OF [address], [address] [facility] [address] Phone: APR 27, 2020 MR. GRADY VILLEGAS [address] [place] [id number] Dear Mr. Villegas: We have received the results of your recent test s. Overall, your blood counts, blood sugar level, cholesterol levels, a nd kidney and liver functions are NORMAL. See below for full details. Please c all the clinic with any questions. Results: Collection time: Apr 26, 2020@11:23 Test Name Result Units Range --------- ------ ----- ----- HEMOGLOBIN A1C 5.0 % 4.0 - 5.6 Test Name Result Units Range --------- ------ ----- ----- WBC 6.1 10*3/uL 4.5 - 11.0 RBC 4.62 10*6/uL 4.23 - 5.66 HGB 15.4 g/dl 12.8 - 17 HEMATOCRIT 46.7 % 39.2 - 50.4 MCV 101.1H fl 82 - 99 MCH 33.3H pg 26.2 - 32.6 MCHC 33.0 g/dl 30.8 - 35.1 RDW 12.1 % 12.0 - 16.0 PLT 220 10*3/uL 140 - 360 MPV 11.1 fl 9.2 - 12.4 Test Name Result Units Range --------- ------ ----- ----- GLUCOSE 102H mg/dL 65 - 100 UREA NITROGEN 30H mg/dL 7 - 25 CREATININE 0.84 mg/dl 0.5 - 1.5 eGFR >60 mL/min Ref: >=60 SODIUM 139 mmol/L 135 - 145 POTASSIUM 4.1 mmol/L 3.5 - 5.0 CHLORIDE 106 mmol/L 100 - 110 CARBON DIOXIDE 26 mmol/L 20 - 30 ANION GAP 7 mmol/L 4 - 16 CALCIUM 9.1 mg/dL 8.5 - 10.5 PROTEIN, TOTAL 6.7 g/dL 6.0 - 8.5 ALBUMIN 3.9 g/dL 3.2 - 5.0 ALKALINE PHOSPHATASE 53 U/L 40 - 150 ALT(SGPT) 23 U/L 7 - 52 AST(SGOT) 26 U/L 5 - 34 FIB-4 SCORE 1.65 INDEX Ref: <=2.67 BILIRUBIN, TOTAL 0.9 mg/dL 0.2 - 1.2 CHOLESTEROL 151 mg/dL 0 - 199 TRIGLYCERIDE 122 mg/dL 0 - 149 HDL CHOLESTEROL 49 mg/dL Ref: >=40 LDL CHOLESTEROL (CALC) 78 mg/dl 0 - 129 Sincerely, /elizabeth/ CINDA GODWIN D.O. Staff Physician 04/27/2020 ADDENDUM STATUS: COMPLETED Pls mail letter. SREEDHAR /elizabeth/ CINDA GODWIN D.O. Signed: 04/27/2020 16:05 Receipt Acknowledged By: 05/02/2020 08:36 /elizabeth/ CASEY JAUREGUI MSA Incoming Freight Clerk Apr 04, 2020 09:50 AM PRIMARY CARE NOTE: [facility] LOCAL TITLE: Primary Care Clinic Note STANDARD TITLE: PRIMARY CARE NOTE DATE OF NOTE: APR 04, 2020@09:50 ENTRY DATE: APR 04, 2020@09:50:58 AUTHOR: BUCKY RABAGO EXP COSIGNER: URGENCY: STATUS: COMPLETED PATIENT: Grady Villegas Age: 69 : 1950 Chief Complaint: f/u for BP HPI: 69 yo male presesnts to clinic for visit - he was supposed to be tele visit, but states he misunderstood instruction. he feels well and states he stopped taking losartan luna use he was concerned about safety of medication. his BP today is 113/74. he also states he walks about 3 miles most days of the week. he needs med refill. REVIEW OF SYSTEMS Other than complaints listed above, a 10 point r eview of systems is negative Alcohol [x] yes [] no 1 drink a day - advised to take tuesdays off Active problems - Computerized Problem List is t he source for the followin. Subsequent NSTEMI (non-ST segment elevation myocardial infarction) 2. HLD - Hyperlipidemia 3. AF- Atrial Fibrillation ([facility] [id number]) 4. CHF - Congestive heart failure 5. HTN - Hypertension ([facility] [id number]) Active Outpatient Medications (excluding Supplie s): Active Outpatient Medications Status 1) ATORVASTATIN CALCIUM 40MG TAB TAKE ONE TABL ET BY ACTIVE MOUTH EVERY DAY TO LOWER CHOLESTEROL 2) METOPROLOL SUCCINATE 50MG SA TAB TAKE ONE T ABLET BY ACTIVE MOUTH EVERY EVENING FOR BLOOD PRESSURE/HE ART NOTE TABLET STRENGTH/DIRECTIONS Active Non-VA Medications Status 1) Non-VA ASPIRIN 81MG EC TAB 81MG BY MOUTH EV ABRAHAM DAY ACTIVE 3 Total Medications Allergies: morphine Physical Exam Measurement DT BP PULSE WEIGHT POx LB(KG)[BMI ] (L/MIN)(%) 04/04/2020 09:30 113/74 60 175.4(79.5 6)[25] 95 Measurement DT PAIN 04/04/2020 09:30 0 GEN: no acute distress PSYCH: AAO x 3 NEURO: CNII through XII radhames sly intact without focal deficit, motor strength 5/5 and equal. sensation intact, DTRs 2/4 and equal, no pronator drift, (-) Romberg HEENT: PERRL, EOMI, no nystagmus, TMs visualized and appear normal, normal oropharynx NECK: Supple, (-) tenderness, (-) carotid bruit, (-) lymphadenopathy LUNGS: breath sounds present and clear throughou t HEART: Regular rate and rhythm, (-) murmur, (-) gallop THORAX: (-) CVA tenderness ABDOMEN: Soft, (-) tendernes s, (-) distension, (-) guarding, (-) rebound, bowel sounds present and normal EXT: (-) edema Assessment and Plan 1. HLD a. LDL = 88 (Mar 2019) 1. close to target b. atorvastatin 40mg qpm 1. this was reduced du e to muscle fatigue which is improved on lower dose 2. Aortic root and ascending aorta dilatation a. Aortic root dilated at 4.3 cm b. Moderately dilated ascending aorta at 4.7 cm 1. yearly surveillance 2. TTE each April - 2019 3. H/O Afib a. currently in sinus rhythm b. apixaban dc'd c. continue Metoprolol SA 50 mg qhs 3. H/O NSTEMI at time of presentation in afib wi th RVR (type II) a. ASA 81 mg qd b. BP control 1. Losartan 50mg daily - stopped losartan > BP = 113/74 2. Metoprolol succinate 50mg daily f/u 12 months I spent more than 50% of thi s encounter counseling the pt on the medical health issues listed above Outpt. Medication Reconciliation: Discrepancy Found - Med Rec Completed. DISCREPANCIES FOUND. The patient's medicat ion list/medication history to include Local Active VA Prescip tions, Remote Active VA Prescriptions, Non-VA Medications, Recentl y VA Prescriptions (90-180 days), Recently Discontinued VA Pr escriptions (90-180 days), and Pending Medication Orders where releva nt (e.g., patient is seen by multiple providers in the same day) was compared with CPRS and reviewed/discussed with the patient/caregi cynthia and reconciled for any discrepancies. A copy of this medication l ist was provided to the patient/caregiver. The patient/caregiver w as instructed to update this list, discard old lists, and take thi s to their next appointment, whether with a VA or non-VA p jairo. Any changes in medications and any medications discontinu ed are documented in this note. * Discrepancies were identified, and were addressed, and discussed with the patient/caregiver at this encounter and documented in the chart (this note). * All changes in medications, including a ll non-VA/Herbals/OTC medications were entered into CPRS, and documented in this note. * If there were any medications the patie nt should no longer take, they were discontinued. The discontinue d medications are documented in this note. * The patient/caregiver was instructed to update this list, discard old lists, and take this list to their next appointment, whether with a VA or non-VA provider. Discrepancy and action taken: medication r maryjo and updated /elizabeth/ BUCKY RABAGO Physician Signed: 04/04/2020 16:31
--- OUTSIDE RECORDS SUMMARY | 2020-09-17 11:42 | XMS_ITS | Encounter Summary ---
:1950 Author Organization Department [facility] Address [address] [place] [address] Care Team Providers Name Role Phone BUCKY [...] MEDICARE MEDICARE PART Jul 15, PART A [id number] STEPHANIE JerriInder PATIENT (WNR) (M) A 2016 [id number] ILLIAM MEDICARE MEDICARE PART Jul 15, PART A [id number] STEPHANIE JerriInder PATIENT (WNR) (M) A 2016 86A 1 ILLIAM MEDICARE MEDICARE PART Jul 15, PART A [id number] STEPHANIE JerriW PATIENT (WNR) (M) A 2016 86A 1 ILLIAM Selected Encounter This section includes the information on record at [place] for the Encounter. Date/Time Encounter Type Encounter Description Reason Provider Source Nov 15, 2019 08:48 Outpatient Encounter EVENT (HISTORICAL) AM IHE Encounter Template Text not used by [place] Plan of Treatment: Future Appointments (+ 6 [...] 20 appointments. The data comes from all [facility]. Appointment Date/Time Appointment Type Appointment Facili ty Name Apr 04, 2020 09:30 AM AMBULATORY - MEDICINE [facility] Apr 26, 2020 11:30 AM AMBULATORY - NONE [facility] Pathology Reports: +/- 30 days of [...] the Encounter. The data comes from all [place] treatment facilities. Date/Time Pathology Report Provider Source Nov 16, 2019 01:54 PM LR SURGICAL PATHOLOGY REPORT: RADHA MOSER [facility] LOCAL TITLE: LR SURGICAL PATHOLOGY REPORT [facility] STANDARD TITLE: PATHOLOGY REPORT DATE OF NOTE: NOV 16, 2019@13:54:10 ENTRY DATE: NOV 16, 2019@13:54:10 AUTHOR: RADHA MOSER EXP COSIGNER: URGENCY: STATUS: COMPLETED $APHDR Reporting Lab: [facility]AH BLAIR [facility] [CLIA# [id number]] [address] [place], [place] [address] - - - - - - - [...] Label: Grady Villegas Paperwork: Grady Villegas Cassette: [id number]---[id number],WILLIAM--405 Specimen is labeled: 1 C Received in formalin is a piece of glisteni ng pale gallegos tissue, 0.4 x 0.1 x 0.1 cm. Submitted entirely in 1 cassette [id number]---[id number],WILLIAM--405 11/15/2019 Microscopic exam: DIAGNOSIS: Cecum, biopsy: Mucosa with mild reactive changes, negative for remnants of adenomatous polyp The attending pathologist amis e signature appears on this report has reviewed all diagnostic slides and has edit ed the gross and/or microscopic portion of this report in rende ring the final pathologic diagnosis. [address] [address] CPT: 12934 /elizabeth/ RADHA MOSER pathologist Signed Nov 16, 2019@13:54 Performing Laboratory: Surgical Pathology Report Performed By: ALEAH TREJO [facility] [CLIA# [id number]] [address] [place] [phone] $FTR - - - - - - [...] - - GRADY VILLEGAS STANDARD FORM 515 ID:[id number] SEX:M :1950 AGE: 69 LO C:SDM END PC P: Bucky Rabago DO /elizabeth/ RADHA MOSER pathologist Signed: 11/16/2019 13:54
--- OUTSIDE RECORDS SUMMARY | 2020-09-17 11:42 | XMS_ITS | Encounter Summary ---
:1950 Author Organization Department [facility] Address [address] [place] [address] Care Team Providers Name Role Phone BUCKY [...] MEDICARE MEDICARE PART Jul 15, PART A [id number] STEPHANIE JerriInder PATIENT (WNR) (M) A 2016 [id number] ILLIAM MEDICARE MEDICARE PART Jul 15, PART A [id number] STEPHANIE JerriInder PATIENT (WNR) (M) A 2016A 1 ILLIAM MEDICARE MEDICARE PART Jul 15, PART A [id number] STEPHANIE JerriW PATIENT (WNR) (M) A 2016A 1 ILLIAM Selected Encounter This section includes the information on record at [place] for the Encounter. Date/Time Encounter Type Encounter Description Reason Provider Source Apr 04, 2020 09:32 Outpatient Encounter PRIMARY CARE/MEDICINE AM IHE Encounter Template Text not used by [place] Plan of Treatment: Future Appointments (+ 6 months) and Future Tests (+/- 45 days) The Plan of Treatment section includes future care activities for the patient from all [place] treatment facilities. This section includes future appointments and future orders which are active, pending or scheduled.Future Appointments This section includes appointments that were scheduled to occur 6 months from the date of the Encounter, up to a maximum of 20 appointments. The [facility] Appointment Date/Time Appointment Type Appointment Facili ty Name Apr 26, 2020 11:30 AM AMBULATORY - NONE [facility] Jun 15, 2020 09:30 AM [facility] Jul 16, 2020 10:30 AM AMBULATORY - NONE [facility] Jul 23, 2020 10:00 AM AMBULATORY - NONE [facility] Lab Results: +/- 30 days of [...] Range Comment Apr 26, 2020 11:23 AM [facility] CBC NO DIFF Spe cimen Type: BLOOD No comment enter ed. Ordering Provide r: CINDA GODWIN Report Released Date/Time: Oct 05, 2019 03:19 PM Reporting Lab: [facility] [address] [facility] [address] Performing Lab: [facility] [address] [facility] [address] WBC 6.1 10*3/uL 4.5-11.0 RBC 4.62 10*6/uL 4.23-5.66 HGB 15.4 g/dl 12.8-17 HEMATOCRIT 46.7 % 39.2-50.4 MCV 101.1 fl H 82-99 MCH 33.3 pg H 26.2-32.6 MCHC 33.0 g/dl 30.8-35.1 PLT 220 10*3/uL 140-360 MPV 11.1 fl 9.2-12.4 RDW 12.1 % 12.0-16.0 Apr 26, 2020 11:23 [facility] P4 GLU,BUN,CREAT,LYTES,CA Spe cimen Type: PLASMA AM [facility] No comment enter ed. Ordering Provide r: CINDA GODWIN Report Released Date/Time: Oct 05, 2019 03:19 PM Reporting Lab: [facility] [address] [facility] [address] Performing Lab: [facility] [address] [facility] [address] UREA NITROGEN 30 mg/dL H 7-25 SODIUM 139 mmol/L 135-145 POTASSIUM 4.1 mmol/L 3.5-5.0 CHLORIDE 106 mmol/L 100-110 CARBON DIOXIDE 26 mmol/L 20-30 ANION GAP 7 mmol/L 4-16 GLUCOSE 102 mg/dL H 65-100 CREATININE 0.84 mg/dl 0.5-1.5 CALCIUM 9.1 mg/dL 8.5-10.5 eGFR 91 mL/min >60 Apr 26, 2020 11:23 AM [facility] LIVER PROFILE Spe cimen Type: PLASMA No comment enter ed. Ordering Provide r: VO,CINDA P Report Released Date/Time: Oct 05, 2019 03:19 PM Reporting Lab: [facility] [address] [facility] [address] Performing Lab: [address] [address] PROTEIN, TOTAL 6.7 g/dL 6.0-8.5 ALBUMIN 3.9 g/dL 3.2-5.0 BILIRUBIN, TOTAL 0.9 mg/dL 0.2-1.2 ALKALINE PHOSPHATASE 53 U/L 40-150 ALT(SGPT) 23 U/L 7-52 AST(SGOT) 26 U/L 5-34 FIB-4 SCORE 1.65 INDEX <2.67 Apr 26, 2020 11:23 [facility] LIPOPROTEIN CHOLESTEROL Speci men Type: PLASMA AM [facility] FRACT. PANEL No comment enter ed. Ordering Provide r: VOCINDA P Report Released Date/Time: Oct 05, 2019 03:19 PM Reporting Lab: [facility] [address] [facility] [address] Performing Lab: [facility] [address] [facility] [address] CHOLESTEROL 151 mg/dL 0-199 TRIGLYCERIDE 122 mg/dL 0-149 HDL CHOLESTEROL 49 mg/dL >40 LDL CHOLESTEROL (CALC) 78 mg/dl 0-129 Apr 26, 2020 MESOPOTAMIA GLYCOHEMOGLOBIN (A1C Specimen Ty pe: BLOOD 11:23 AM [facility] ONLY) Comment: Refere nce Ranges: 4.0 - 5.6 normal 5.7 - 6.4 pre-diabetes >=6.5% diabetic range. If patient has Not Been diagnosed see [place]-D[place] Diabetes Guidelines for more guidance. http://www.healthquality.[place].gov/g harish/CD/shea rylie/ Target A1C values should be individualized. Better understanding of A1C test result accuracy is essential if clinicians are to interpret results for Veterans, and discuss treatmen t options throug h the process of Shared Decision Making. Testing performed by [facility] certified [employer]. The Busby HgA1c assay should not be used to diagnose or monitor diabetes in patients with altered red cell lifespan such as homozygous hemoglobin variant Hb SC, HbF >5% and hemolytic anemia Heterozygous hemoglobin variants do not affect this assay, HbAS, HbAC, HbAD, HbAE, HbA2. Ordering Provide r: CINDA GODWIN Report Released Date/Time: Oct 05, 2019 03:19 PM Reporting Lab: [facility] [address] [facility] [address] Performing Lab: [facility] [address] [facility] [address] HEMOGLOBIN A1C 5.0 % 4.0-5.6 Vital Signs: All taken on the encounter date This section contains inpatient and outpatient Vital Signs collected on the date of the Encounter. Date/Time Temperature Pulse Blood Respiratory SP02 Pain Height Weight Heber dy Source Pressure Rate Mass Index Apr 04, 98.4 F 60 113/74 95 % 0 70 in 175.4 25 WHITE 2019 09:30 /min mm[Hg] lb [facility] Encounter Notes: All associated encounter notes This section contains the clinical notes associated to the Encounter. Date/Time Encounter Note(s) Provider Source Apr 04, 2020 09:32 AM PRIMARY CARE ANNUAL EVALUATION NOTE: GIOVANNY CHARLES [facility] LOCAL TITLE: Preventive Health Annual Review STANDARD TITLE: PRIMARY CARE ANNUAL EVALUATION N OTE DATE OF NOTE: APR 04, 2020@09:32 ENTRY DATE: APR 04, 2020@09:32:16 AUTHOR: GIOVANNY JOE EXP COSIGNER: URGENCY: STATUS: COMPLETED Advance Directive Screen: Patient has an up-to-date Advance Directiv e document, but it is not on file at this [facility]. Patient has been re quested to forward a copy to his/her clinician. The patient received education about advan ce directives as well as written notification of his/her rights. Alcohol Use Screen (AUDIT-C) & F/U: Alcohol Screen: SCREEN FOR ALCOHOL (AUDIT-C) An alcohol screening test (AUDIT-C) wa s POSITIVE (score=4). At this score level (3 or 4 for women , 4 for men), no additional action is required but brief alcohol counseling would be beneficial. 1. How often did you have a drink containing alcohol in the past year? Four or more times a week 2. How many drinks containing alco hol did you have on a typical day when you were drinking in the past year? 1 or 2 3. How often did you have six or m ore drinks on one occasion in the past year? Never Depression Screening: PHQ-2+I9 Depression Screening Score: 0 The score on this administration is 0, which indicates a negative screen on the Depression Scal e over the past two weeks. Suicide Screening Score: 0 The results of this administration ind icates a NEGATIVE primary screen for Risk of Suicide ove r the last 2 weeks. Over the past two weeks, how often have you been bothered by the following problems? 1. Little interest or pleasure in do ing things Not at all 2. Feeling down, depressed, or hopel ess Not at all 3. Thoughts that you would be better off or of hurting yourself in some way Not at all /elizabeth/ GIOVANNY JOE Health Extruder Signed: 04/04/2020 09:34
--- OUTSIDE RECORDS SUMMARY | 2020-09-17 11:42 | XMS_ITS ---
:1950 Author Organization [facility] Address [address] [place] [address] Care Team Providers Name Role Phone HIMA BUCKY Primary Care Provider Unavailable Insurance Providers: All [...] MEDICARE MEDICARE PART Jul 15, PART A [id number] Inder WADE PATIENT (WNR) (M) A 2016 [id number] ILLIAM MEDICARE MEDICARE PART Jul 15, PART A [id number] BULLAURY K,W PATIENT (WNR) (M) A 2016A 1 ILLIA MEDICARE MEDICARE PART Jul 15, PART A [id number] BULLAURY K,W PATIENT (WNR) (M) A 2016A 1 ILLIAM Selected Encounter This section includes the information on record at [place] for the Encounter. 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 USUALLY, THE PRESENTING PROBLEM(S) ARE MINIMAL. TYPICALLY, 5 MINUTES ARE SPENT PERFORMING OR SUPERVISING THESE SERVICES. IHE Encounter Template Text not used by [place] Assessments - Encounter Diagnoses This section includes the primary and secondary diagnoses documented forthe Encounter. Date/Time Primary/Secondary Diagnosis Name Provider Source Diagnosis Nov 15, 2019 PRIMARY Encounter for other CHAU ALMANZAR 08:10 AM preprocedural D [facility] examination Plan of Treatment: Future Appointments (+ 6 [...] 20 appointments. The data comes from all [facility]. Appointment Date/Time Appointment Type Appointment Facili ty Name Apr 04, 2020 09:30 AM AMBULATORY - MEDICINE [facility] Apr 26, 2020 11:30 AM AMBULATORY - NONE [facility] Pathology Reports: +/- 30 days [...] the Encounter. The data comes from all [place] treatment facilities. Date/Time Pathology Report Provider Source Nov 16, 2019 01:54 PM LR SURGICAL PATHOLOGY REPORT: RADHA MOSER [facility] LOCAL TITLE: LR SURGICAL PATHOLOGY REPORT [facility] STANDARD TITLE: PATHOLOGY REPORT DATE OF NOTE: NOV 16, 2019@13:54:10 ENTRY DATE: NOV 16, 2019@13:54:10 AUTHOR: RADHA MOSER EXP COSIGNER: URGENCY: STATUS: COMPLETED $APHDR Reporting Lab: ALEAH BLAIR [facility] [CLIA# [id number]] [address] [place], [place] [address] - - - - - - - [...] GROSS DESCRIPTION: Name Label: Grady Villegas Paperwork: VillegasGrady bernardo Cassette: [id number]---[id number],WILLIAM--405 Specimen is labeled: 1 C Received in formalin is a piece of glisteni ng pale gallegos tissue, 0.4 x 0.1 x 0.1 cm. Submitted entirely in 1 cassette [id number]---[id number],WILLIAM--405 11/15/2019 Microscopic exam: DIAGNOSIS: Cecum, biopsy: Mucosa with mild reactive changes, negative for remnants of adenomatous polyp The attending pathologist amis jeremiah signature appears on this report has reviewed all diagnostic slides and has edit ed the gross and/or microscopic portion of this report in rende ring the final pathologic diagnosis. [address] [address] CPT: 47446 /elizabeth/ RADHA MOSER pathologist Signed Nov 16, 2019@13:54 Performing Laboratory: Surgical Pathology Report Performed By: ALEAH TREJO [facility] [CLIA# [id number]] [address] [place], [place] [address] $FTR - - - - - - - - - - - - - - - - - - - - - - - - - - - - - - - - - - - - - - - - (End of report) RADHA MOSER MD [facility] Date Nov 16, 2019 - - - - - - - - - - - - - - - - - - - - - - - - - - - - - - - - - - - - - - - - GRADY VILLEGAS STANDARD FORM 515 ID:[id number] SEX:M :1950 AGE: 69 LO C:SDM END PC P: Bucky Bravo DO /elizabeth/ RADHA MOSER pathologist Signed: 11/16/2019 13:54 Encounter Notes: All associated encounter notes This section contains the clinical notes associated to the Encounter. Date/Time Encounter Note(s) Provider Source Nov 15, 2019 10:13 AM NURSING NOTE: JUVENCIO GILBERTT LOCAL TITLE: PACU/Same Day Recovery Note [facility] STANDARD TITLE: NURSING NOTE DATE OF NOTE: NOV 15, 2019@10:13 ENTRY DATE: NOV 15, 2019@10:13:16 AUTHOR: JUVENCIO GILBERT EXP COSIGNER: URGENCY: STATUS: COMPLETED GI Recovery COLONOSCOPY Medication used: Fentanyl: 150 Midazolam: 4 Time of last medication: 0935 Reversal medication used No Tolerated the procedure Yes LOC: Alert, Orientated Tolerating PO fluid Yes adan ashely Nausea/Vomiting: No Vitals: T98.0, p74, R16, Bp 136/80, O297, 0/10 pain LOP: 0/10 pain Vitals at time of Discharge: T98.1, p62, R18, BP 139/91, O298, 0/10 pain LOP: 0/10 pain *Verbalizes understanding of D/C instructions Yes Transportation: AMBULATION Patient have a Radio Frequency Technician? Yes Responsible Drivers Name: Ade Villegas francenancy jeremiah Time of Discharge: 1040 DISCHARGE TIME: 1040 *IV SITE: Gauge: #22 IV catheter discontinued prior to discharge Reviewed d/c instructions with pt. and pt. verb alized understanding. PIV removed #22 right wrist. Pt discharged home fro m PACU recovery at 1040 in stable condition. The pt. left with helicopter mechanic y of d/c instructions and all personal belongings. /elizabeth/ JUVENCIO GILBERT RN Signed: 11/15/2019 10:23 Nov 15, 2019 07:53 AM NURSING OUTPATIENT OPERATIVE NOTE: Tess ALMANZAR Trina LOCAL TITLE: Same Day Nursing Progress Note [facility] STANDARD TITLE: NURSING OUTPATIENT OPERATIVE NOT E DATE OF NOTE: NOV 15, 2019@07:53 ENTRY DATE: NOV 15, 2019@07:53:53 AUTHOR: CHAU ALMANZAR EXP COSIGNER: URGENCY: STATUS: COMPLETED Same Day Nursing Health History Pre-op Visit Interview via:In Person Pre procedure Date: Pts. Telephone #: Procedure Date: 11/15/19 Procedure: colonoscopy Diagnosis/Reason for Procedure: h/o polpys Notify in Emergency: Ade- Contact Nu mber: Responsible Adult Radio Frequency Technician: Ade- Waiting at [place]? YES If no, Contact #: Help available at home if necessary? YES Who: Ade Physician: Tonio Time of last Food/Fluids: Last ate 11/13/19. Ochoa glover drank 11/15/19 at 0330 Age: 69 Vital Signs: Temperature:97.3 Blood Pressure: 154/84 Pulse: 79 Pulse Oximetry:98% RA Respiration: 18 Height: 70 in Weight: 182.6 lb Lung Sounds:CTA bilaterally Heart Sounds:regular rhythm Bladder Scan/PVR Result:N/A Pain present? NO Loose Teeth: NO Dentures:no Bridges: NO Glasses/contact lenses: NO Hearing Aids:NO Prosthesis/Implants: NO Assist with ADLS: NO Living Will/Durable Power of Cost Coordinator: YES Info. Given: DECLINES Jewish: No Preference Mentation/Behavior: alert and oriented x 3 SUBSTANCE USE Current Alcohol Use: YES Amount: 1 glass wine ryann y Former Tobacco Use: YES AMOUNT: QUIT DATE/YE AR:1972 Former Chewing Tobacco Use: NO Former Marijuana use: NO Former Cocaine use: NO Former Heroin use: NO MEDICAL HISTORY: 1. Subsequent NSTEMI (non-ST segment elevatio n myocardial infarction) 2. HLD - Hyperlipidemia 3. AF- Atrial Fibrillation ([facility] [id number]) 4. CHF - Congestive heart failure 5. HTN - Hypertension ([facility] [id number]) Allergies:MORPHINE Diabetes:NO Musculoskeletal Problems: NO Neurological Problems: NO Peripheral Vascular Disease: NO Skin Intact: Heart Disease: YES Previous AK: YES 8- no issues since Angina/CP: NO If Yes, Last Episode: High BP: YES Lung Disease: NO Elimination Problems: NO Is there any Violence/Abuse (verbal/physical) in your life? NO Does the patient have any visible signs of tra alba or bruising? NO SURGICAL HISTORY (previous surgery/anesthesia) : s/p cardiac cath, s/p colonosocpy, s/p bilateral inguinal hernia, s/ p tonsillectomy Patient denies history of problems with sedati on or anesthesia Yes if no add comments: CURRENT MEDICATIONS: 1) ATORVASTATIN CALCIUM 40MG TAB TAKE ONE TA BLET BY ACTIVE MOUTH EVERY DAY TO LOWER CHOLESTEROL 2) COLON ELECTROLYTE LAVAGE PWD FOR CAROLINAN HANNAH E 1 GALLON ACTIVE BY MOUTH DIRECTED - DO NOT START COL ONOSCOPY PREPARATION UNTIL YOU ARE CONTACTED BY THE GASTROENTEROLOGY DEPARTMENT WITH INSTRU CTIONS PREPARE...STARTING AT 6PM THE DAY PRIOR TO YOUR PROCEDURE, DRINK 8OZ EVERY 20 MINUTES UNTIL DONE WITH THE FIRST HALF GALLDANILO(64OZ). STAR JAMEEG 6 HOURS BEFORE YOUR PROCEDURE TIME, DRINK 8OZ E VERY 20 MINUTES UNTIL DONE WITH SECOND HALF WAYNE RIVAS(64OZ). 3) METOPROLOL SUCCINATE 50MG SA TAB TAKE ONE TABLET BY ACTIVE MOUTH EVERY EVENING FOR BLOOD PRESSURE/ HEART NOTE TABLET STRENGTH/DIRECTIONS 1) Non-VA ASPIRIN 81MG EC TAB 81MG BY MOUTH EVERY DAY ACTIVE MEDICATION LIST REVIEWED WITH ? Patient Current Medication Regimen is correct Any changes to medication list? No Does patient take any anti-coagulants? Yes ASA 81mg Indicate last anti-coagulation dose taken:11/14/19 Patient verbalizes understanding of Planned Pr ocedure and Pre-op instructions given. Questions answered. Yes /elizabeth/ CHAU ALMANZAR Registered Nurse Signed: 11/15/2019 08:10
--- OUTSIDE RECORDS SUMMARY | 2020-09-17 11:42 | XMS_ITS | Encounter Summary ---
:1950 Author Organization Department [facility] Address [address] [place] [address] Care Team Providers Name Role Phone HIMABUCKY [...] MEDICARE MEDICARE PART Jul 15, PART A [id number] Inder WADE PATIENT (WNR) (M) A 2016 [id number] ILLIAM MEDICARE MEDICARE PART Jul 15, PART A [id number] KWABENAAURY JerriW PATIENT (WNR) (M) A 2016A 1 ILLIAM MEDICARE MEDICARE PART Jul 15, PART A [id number] BULLAURY JerriW PATIENT (WNR) (M) A 2016A 1 ILLIAM Selected Encounter This section includes the information on record at [place] for the Encounter. Date/Time Encounter Type Encounter Description Reason Provider Source February 09, 2020 09:07 Outpatient Encounter TELEPHONE TRIAGE AM IHE Encounter Template Text not used by [facility] Plan of Treatment: Future Appointments (+ 6 months) and Future Tests (+/- 45 days) The Plan of Treatment section includes future care activities for the patient from all [place] treatment facilities. This section includes future appointments and future orders which are active, pending or scheduled.Future Appointments This section includes appointments that were scheduled to occur 6 months from the date of the Encounter, up to a maximum of 20 appointments. The [facility] [place] [facility] Appointment Date/Time Appointment Type Appointment Facili ty Name Apr 04, 2020 09:30 AM AMBULATORY - MEDICINE [facility] Apr 26, 2020 11:30 AM AMBULATORY - NONE [facility] Jun 15, 2020 09:30 AM AMBULATORY - MEDICINE [facility] Jul 16, 2020 10:30 AM AM[facility]ORY - NONE [facility] Jul 23, 2020 10:00 AM [facility] - NONE [facility] Encounter Notes: All associated encounter notes This section contains the clinical notes associated to the Encounter. Date/Time Encounter Note(s) Provider Source February 09, 2020 09:07 AM TELEPHONE ENCOUNTER NOTE: RETA PEOPLES [facility] LOCAL TITLE: VISN 1 [facility] STANDARD TITLE: TELEPHONE ENCOUNTER NOTE DATE OF NOTE: FEBRUARY 09, 2020@09:07:07 ENTRY DATE: FEBRUARY 09, 2020@09:09:50 AUTHOR: RETA PEOPLES EXP COSIGNER: URGENCY: STATUS: COMPLETED Type of call: MEDICATION -ACTION REQUIRED. Caller Response: SENT TO PACT SPOUSE called in for GRADY VILLEGAS ([phone]) . [facility] COVID -19 SCREEN NEGATIVE Comments: ATORVASTATIN TAB 40MG Evaluation/Management Code: HC PRO PHONE CALL 5- 10 MIN ([id number]). Starting at: 02/09/2020 @ 9:07:07 AM Ending at: 02/09/2020 @ 9:09:36 AM Length: 2 minutes. Author: RETA PEOPLES Caller Area: [facility] Chief Complaint: Not applicable to call. Class Code: Other specified counseling. Contact Patient's Email Address: [email or web address] /elizabeth/ RETA PEOPLES Signed: 02/09/2020 09:09 Receipt Acknowledged By: 02/09/2020 09:22 /es/ BUCKY RABAGO Physician 02/09/2020 13:56 /es/ YESY MOORE RN 02/09/2020 10:20 /es/ SHAHID JARAMILLO Registered Nurse
--- OUTSIDE RECORDS SUMMARY | 2020-09-17 11:42 | XMS_ITS ---
:1950 [address] Department [facility] Address [address] [place] [place] [address] Care Team Providers Name Role Phone VALENTINO RABAGO Primary Care Provider Unavailable Insurance Providers: [...] MEDICARE MEDICARE PART Jul 15, PART A [id number] STEPHANIE JerriInder PATIENT (WNR) (M) A [id number] 00 [place]LLIAM MEDICARE MEDICARE PART Jul 15, PART A [id number] STEPHANIE JerriInder PATIENT (WNR) (M) A 2016A 1 [place] MEDICARE MEDICARE PART Jul 15, PART A [id number] STEPHANIE JerriW PATIENT (WNR) (M) A 2016A 1 ILLIAM Selected Encounter This section includes the information on record at [place] for the Encounter. Date/Time Encounter Type Encounter Description Reason Provider Source Nov 16, 2019 12:00 Outpatient Encounter EVENT (HISTORICAL) AM IHE Encounter Template Text not used by [place] Plan of Treatment: Future Appointments (+ 6 [...] 20 appointments. The data comes from all [facility]. Appointment Date/Time Appointment Type Appointment Facili ty Name Apr 04, 2020 09:30 AM AMBULATORY - MEDICINE [facility] Apr 26, 2020 11:30 AM AMBULATORY - NONE [facility] Pathology Reports: +/- 30 [...] the Encounter. The data comes from all [place] treatment facilities. Date/Time Pathology Report Provider Source Nov 16, 2019 01:54 PM LR SURGICAL PATHOLOGY REPORT: RADHA MOSER [facility] LOCAL TITLE: LR SURGICAL PATHOLOGY REPORT [facility] STANDARD TITLE: PATHOLOGY REPORT DATE OF NOTE: NOV 16, 2019@13:54:10 ENTRY DATE: NOV 16, 2019@13:54:10 AUTHOR: RADHA MOSER EXP COSIGNER: URGENCY: STATUS: COMPLETED $APHDR Reporting Lab: [facility] [CLIA# [id number]] [address] [place], [place] [phone] - - - - - - - [...] - - - $TEXT Submitted by: CHRISTINE HYANES Date obtained: Nov 15, 2019 11:49 - [...] - - - GROSS DESCRIPTION: Name Label: Kodi Villegas Paperwork: Kodi Villegas Cassette: [id number]---[id number],WILLIAM--405 Specimen is labeled: 1 C Received in formalin is a piece of glisteni ng pale gallegos tissue, 0.4 x 0.1 x 0.1 cm. Submitted entirely in 1 cassette [id number]---[id number],WILLIAM--405 11/15/2019 Microscopic exam: DIAGNOSIS: Cecum, biopsy: Mucosa with mild reactive changes, negative for remnants of adenomatous polyp The attending pathologist amis e signature appears on this report has reviewed all diagnostic slides and has edit ed the gross and/or microscopic portion of this report in rende ring the final pathologic diagnosis. [address] [address] CPT: 24860 /elizabeth/ RADHA MOSER pathologist Signed Nov 16, 2019@13:54 Performing Laboratory: Surgical Pathology Report Performed By: ALEAH TREJO [facility] [CLIA# [id number]] [address] [place] [phone] $FTR - - - - - - [...] - - - - - - - KODI VILLEGAS STANDARD FORM 515 ID:[id number] SEX:M :1950 AGE: 69 LO C:SDM END PC P: Valentino Rabago DO /elizabeth/ RADHA MOSER pathologist Signed: 11/16/2019 13:54
--- OUTSIDE RECORDS SUMMARY | 2020-09-17 11:43 | XMS_ITS | Encounter Summary ---
:1950 [address] [facility] Address [address] [place] [address] Care Team Providers Name Role Phone HIMA [...] MEDICARE MEDICARE PART Jul 15, PART A [id number] KWABENAAURY Inder Guthrie PATIENT (WNR) (M) A 2016 [id number] ILLIAM MEDICARE MEDICARE PART Jul 15, PART A [id number] STEPHANIE JerriW PATIENT (WNR) (M) A 2016 86A 1 [place]LLIAM MEDICARE MEDICARE PART Jul 15, PART A [id number] STEPHANIE JerriW PATIENT (WNR) (M) A 2016 86A 1 ILLIAM Selected Encounter This section includes the information on record at [place] for the Encounter. Date/Time Encounter Type Encounter Description Reason Provider Source Nov 09, 2019 02:26 Outpatient Encounter GI ENDOSCOPY PM IHE Encounter Template Text not used by [place] Plan of Treatment: Future Appointments (+ 6 months) and Future Tests (+/- 45 days) The Plan of Treatment section includes future care activities for the patient from all [place] treatment facilities. This section includes future appointments and future orders which are active, pending or scheduled.Future Appointments This section includes appointments that were scheduled to occur 6 months from the date of the Encounter, up to a maximum of 20 appointments. The data comes from all [facility]. Appointment Date/Time Appointment Type Appointment Facili ty Name Nov 15, 2019 08:00 AM AMBULATORY - MEDICINE [facility] Nov 15, 2019 08:01 AM AMBULATORY - MEDICINE [facility] Apr 04, 2020 09:30 AM AMBULATORY - MEDICINE [facility] Apr 26, 2020 11:30 AM AMBULATORY - [facility] Pathology Reports: +/- 30 days [...] the Encounter. The data comes from all [place] treatment facilities. Date/Time Pathology Report Provider Source Nov 16, 2019 01:54 PM LR SURGICAL PATHOLOGY REPORT: RADHA MOSER [facility] LOCAL TITLE: LR SURGICAL PATHOLOGY REPORT [facility] STANDARD TITLE: PATHOLOGY REPORT DATE OF NOTE: NOV 16, 2019@13:54:10 ENTRY DATE: NOV 16, 2019@13:54:10 AUTHOR: RADHA MOSER EXP COSIGNER: URGENCY: STATUS: COMPLETED $APHDR Reporting Lab: [facility] [CLIA# [id number]] [address] [place] [phone] - - - - - - - [...] Label: Grady Villegas Paperwork: Grady Villegas Cassette: [id number]---[id number],WILLIAM--405 Specimen is labeled: 1 C Received in formalin is a piece of glisteni ng pale gallegos tissue, 0.4 x 0.1 x 0.1 cm. Submitted entirely in 1 cassette [id number]---[id number],WILLIAM--405 CH 11/15/2019 Microscopic exam: DIAGNOSIS: Cecum, biopsy: Mucosa with mild reactive changes, negative for remnants of adenomatous polyp The attending pathologist whos e signature appears on this report has reviewed all diagnostic slides and has edit ed the gross and/or microscopic portion of this report in rende ring the final pathologic diagnosis. [facility] [address] [place] [address] CPT: 71320 /elizabeth/ RADHA MOSER pathologist Signed Nov 16, 2019@13:54 Performing Laboratory: Surgical Pathology Report Performed By: ALEAH TREJO [facility] [CLIA# [id number]] [address] [place], [place] [phone] $FTR - - - - - - - - - - - - - - - - - - - - - - - - - - - - - - - - - - - - - - - - (End of report) RADAH MOSER MD ars Date Nov 16, 2019 - - - - - - - - - - - - - - - - - - - - - - - - - - - - - - - - - - - - - - - - GRADY VILLEGAS STANDARD FORM 515 ID:[id number] SEX:M :1950 AGE: 69 LO C:SDM END PC P: Bucky Bravo DO /elizabeth/ RADHA MOSER pathologist Signed: 11/16/2019 13:54 Encounter Notes: All associated encounter notes This section contains the clinical notes associated to the Encounter. Date/Time Encounter Note(s) Provider Source Nov 09, 2019 02:26 PM GASTROENTEROLOGY TELEPHONE ENCOUNTER N OTE: STEFAN HENLEY LOCAL TITLE: Gastroenterology Telephone Note [facility] STANDARD TITLE: GASTROENTEROLOGY TELEPHONE ENCOU NTER NOTE DATE OF NOTE: NOV 09, 2019@14:26 ENTRY DATE: NOV 09, 2019@14:26:25 AUTHOR: STEFAN HENLEY EXP COSIGNER: URGENCY: STATUS: COMPLETED Gastroenterology Telephone Note Has ADDEN DA Call placed to patient's home number as listed i n CPRS. Patient unavailable, Voicemail unidentified. Generic message left requesting call back to extension [phone] at [phone]. Call purpose: Review with patient upcoming GI Pr ocedure on November 15, 2019 /elizabeth/ STEFAN HENLEY Licensed Practical Nurse Signed: 11/09/2019 14:27 11/11/2019 ADDENDUM STATUS: COMPLETED Call placed to patient's home number as listed i n CPRS. Patient unavailable. Detailed message left requesting call back to ex tension [phone] at [phone]. Call purpose: Review with patient upcoming Colon oscopy on November 15, 2019. /elizabeth/ STEFAN HENLEY Licensed Practical Nurse Signed: 11/11/2019 11:17 11/14/2019 ADDENDUM STATUS: COMPLETED Pre-Procedure Phone Call for Gastroenterology Length of time in minutes: 10 Procedure for which patient is scheduled : Colonoscopy on November 15, 2019 at 0900 Patient needs to report to Sameday surgery at 08 00 [facility] 2nd floor Instructions: Clear liquids only beginning November 14, 2019 On day before procedure: mix Golytely with water in AM, put in fridge, and drink half of mixture between 5-7pm. On day of procedure: drink other half of mixture 5-6 hours prior to procedure. Make sure you have 2 hours from time yo u finish prep until you have to drive. Please try to avoid corn, nuts and seed for 1 we ek prior NPO three hours before procedure. May take routine AM medications. Patient instructed that they must have a water truck driver, as they will not be able to drive following procedure due to the medications that will be given. Patient instructed that the water truck driver n eeds to report to same day surgery with the patient prior to the procedure. Parts Facilitator for procedure will be: Ade, Parts Facilitator must report to check in with you, if yulia arnett is leaving the campus, a cellphone number must be provided in case an issue arises. Spoke with patient directly at patient's provide d home phone number. Patient was encourag ed to follow up with GI department if they have any questions contact GI. If fur ther instructions are needed call our automated line at [phone]. [phone] Patient verbalizes understanding of instructions . /elizabeth/ STEFAN HENLEY Licensed Practical Nurse Signed: 11/14/2019 15:44
--- OUTSIDE RECORDS SUMMARY | 2020-09-17 11:43 | XMS_ITS ---
:1950 Author Organization [facility] Address [address] [place] [address] Care Team Providers Name Role Phone HIMA [...] MEDICARE MEDICARE PART Jul 15, PART A [id number] BULLOC Jerri,W PATIENT (WNR) (M) A 2016 [id number] [place]LL[place] MEDICARE MEDICARE PART Jul 15, PART A [id number] BULLOC KW PATIENT (WNR) (M) A 2016A 1 [place] MEDICARE MEDICARE PART Jul 15, PART A [id number] BULLOC K,W PATIENT (WNR) (M) A 2016A 1 ILLIAM Selected Encounter This section includes the information on record at [place] for the Encounter. Date/Time Encounter Type Encounter Reason Provider Source Description Oct 05, 2019 OFFICE OR OTHER PRIMARY ICD-10-CM E78.5 CINDA GODWIN P 03:01 PM OUTPATIENT VISIT CARE/MEDICINE Hyperlipidemia, FOR THE EVALUATION unspecified with AND MANAGEMENT OF Provider Comments: AN ESTABLISHED HLD - PATIENT, WHICH Hyperlipidemia (SCT REQUIRES AT LEAST [id number]) 2 OF THESE 3 GUILLEN COMPONENTS: A DETAILED HISTORY; A DETAILED EXAMINATION; MEDICAL DECISION MAKING OF MODERATE COMPLEXITY. COUNSELING AND/OR COORDINATION OF CARE WITH OTHER PHYSICIANS, OTHER QUALIFIED HEALTH ROUGHER HELPER, OR AGENCIES ARE PROVIDED CONSISTENT WITH THE NATURE OF THE PROBLEM(S) AND THE PATIENT'S AND/OR FAMILY'S NEEDS. USUALLY, THE PRESENTING PROBLEM(S) ARE OF MODERATE TO HIGH SEVERITY. TYPICALLY, 25 MINUTES ARE SPENT [id number] WITH THE PATIENT AND/OR FAMILY. [facility] Encounter Template Text not used by [place] Assessments - Encounter Diagnoses This section includes the primary and secondary diagnoses documented forthe Encounter. Date/Time Primary/Secondary Diagnosis Name Provider Source Diagnosis Oct 05, 2019 PRIMARY Hyperlipidemia, CASEY JAUREGUI RIVE R 03:55 PM unspecified J [facility] Oct 05, 2019 SECONDARY Essential (primary) CASEY JAUREGUI RIVER 03:55 PM hypertension J [facility] Oct 05, 2019 SECONDARY Subsequent non-ST CASEY JAUREGUI RI CYNTHIA 03:55 PM elevation (NSTEMI) J [facility] C myocardial infarction Oct 05, 2019 SECONDARY Unspecified atrial CASEY JAUREGUI IVER 03:55 PM fibrillation J [facility] Plan of Treatment: Future Appointments (+ 6 months) and Future Tests (+/- 45 days) The Plan of Treatment section includes future care activities for the patient from all [place] treatment facilities. This section includes future appointments and future orders which are active, pending or scheduled.Future Appointments This section includes appointments that were scheduled to occur 6 months from the date of the Encounter, up to a maximum of 20 appointments. The data comes from all [facility]. Appointment Date/Time Appointment Type Appointment Facili ty Name Nov 15, 2019 08:00 AM AMBULATORY - MEDICINE [facility] Nov 15, 2019 08:01 AM AMBULATORY - MEDICINE [facility] Apr 04, 2020 09:30 AM AMBULATORY MEDICINE [facility] Encounter Notes: All associated encounter notes This section contains the clinical notes associated to the Encounter. Date/Time Encounter Note(s) Provider Source Oct 05, 2019 09:08 AM PRIMARY CARE NOTE: CINDA GODWIN [facility] LOCAL TITLE: Primary Care Clinic Note STANDARD TITLE: PRIMARY CARE NOTE DATE OF NOTE: OCT 05, 2019@09:08 ENTRY DATE: OCT 05, 2019@09:08:48 AUTHOR: CINDA GODWIN EXP COSIGNER: URGENCY: STATUS: COMPLETED TELEHEALTH F/U NOTE is identified by fir st name, last name and last 4 digits of his SS# and agrees to conduct this visit via tele health. Telehealth Visit [facility] Emergency Phone Contact: or [phone] [facility] front man Confirmed privacy on both en ds of the telehealth call as well as patient consent to proceed with telehealth call. Completed envi ronment survey and identified all participants. ++++++++++++++++++++++++++++++++ [id number] Grain Roaster [phone] ++++++++++++++++++++++++++++++++ Telehealth Help Desk [phone] LAST SEEN: 04/13/19 GRADY VILLEGAS is a 69 year old MALE here for a routine 6-month Primary Care Follow-up visit. S: Pt reports the following: -doing well -has paroxysmal afib, stoppe d apixaban in December 2018 due to concerned about the bleeding risk of oil heaterman use (per Cardiology n ote 12/13/18) -pt also states he stopped taking losartan since Jul 2019 because there was a recall on the meds, his home BP has been 110/s/7 0's, checked 4-5x per week. -he is taking asa 81 mg -he has no acute concerns at his time -denies chest pain, sob, leg swelling, urinary/b owel habit changes -reviewed TTE 04/15/19: LV: no rmal in size, wall thickness, and systolic function, LVEF: 65%. Aortic root is dilated--diameter is 4 .3 cm. Moderately dilated ascending aorta--diameter is 4.7 cm. There is no pericardial effusion. ROS: denies any cardiac/pulm/GI//or constituti onal symptoms of F/C. PROBLEM LIST: Subsequent NSTEMI (non-ST segment elevatHLD - Hy perlipidemia ([facility] [id number]) AF- Atrial Fibrillation ([facility] [id number]) CHF - Co ngestive heart failure ([facility] [id number]) HTN - Hypertension ([facility] [id number]) Active Outpatient Medications (excluding Supplie s): Active Outpatient Medications Status 1) ATORVASTATIN CALCIUM 40MG TAB TAKE ONE TABL ET BY ACTIVE MOUTH EVERY DAY TO LOWER CHOLESTEROL 2) LOSARTAN 50MG TAB TAKE ONE TABLET BY MOUTH EVERY DAY ACTIVE FOR BLOOD PRESSURE/HEART 3) METOPROLOL SUCCINATE 50MG SA TAB TAKE ONE T ABLET BY ACTIVE MOUTH EVERY EVENING FOR BLOOD PRESSURE/HE ART NOTE TABLET STRENGTH/DIRECTIONS Active Non-VA Medications Status 1) Non-VA ASPIRIN 81MG EC TAB 81MG BY MOUTH EV ABRAHAM DAY ACTIVE 4 Total Medications ALLERGIES/ADR: MORPHINE O: T 97.9 P 66 R 20 BP 138/77 02 sat 95 GEN: A&Ox3, NAD Labs reviewed. Assessment and Plan # HLD: controlled, last lab 04/06/19 (HDL 51, LDL 88, total chol 163) -con't atorvastatin 40 mg daily -interval lipid check # Aortic root and ascending aorta dilatation: TT E 04/15/19: LV: normal in size, wall thickness, and systolic function, LVEF: 65% . Aortic root is dilated-- diameter is 4.3 cm. Moderately dilated ascending aorta--diameter is 4.7 cm. T -annual surveillance TTE, next due Apr 2020 # Hx Paroxysmal Afib: d/c'ed apixaban December 2018 d/t risks outweighed benefits. HR controlled. -con't Metoprolol SA 50 mg qhs # H/O NSTEMI at time of presentation in afib wit h RVR (type II): LVEF 65%, no systolic dysfunction and signs of heart failure on exam. Reports home BP 110/70's. Pt stopped taking losartan since Jul 16. -con't asa 81 mg and metoprolol SA 50 mg -monitor BP, if persistently elevated >130/90, t hen resume losartan # HCM: -flu vaccine 06/13/19 -colo ordered, due oct 2019. Disposition: f/u in 6 months (~March 2020), labs prior to next visit Outpt. Medication Reconciliation: Discrepancy Found - Med [...] or non-VA provider. Discrepancy and action taken: d/elysia losart an since pt refused med Statin Use CVD/DM: The patient is already on a statin. The patients prescription for a statin was reviewed and updated. /elizabeth/ CINDA P VO D.O. Signed: 10/05/2019 15:55
--- OUTSIDE RECORDS SUMMARY | 2020-09-17 11:43 | XMS_ITS | Encounter Summary ---
:1950 Author Organization [facility] Address [address] [place] [id number] Care Team Providers Name Role Phone BUCKY [...] MEDICARE MEDICARE PART Jul 15, PART A [id number] [id number] KWABENAAURY JerriInder PATIENT (WNR) (M) A 2016 [id number] ILLIAM MEDICARE MEDICARE PART Jul 15, PART A [id number] STEPHANIE JerriInder PATIENT (WNR) (M) A 2016 86A 1 ILLIAM MEDICARE MEDICARE PART Jul 15, PART A [id number] KWABENAAURY JerriW PATIENT (WNR) (M) A 2016 86A 1 ILLIAM Selected Encounter This section includes the information on record at [place] for the Encounter. Date/Time Encounter Type Encounter Reason Provider Source Description Jun 26, 2020 Outpatient CARDIAC SURGERY ICD-10-CM MAGDALENE RIVERA 08:51 PM Encounter I71.2 Thoracic A MD aortic aneurysm, without rupture with Provider Comments: Thoracic Aortic Aneurysm, without Rupture IHE Encounter Template Text not used by [facility] Assessments - Encounter Diagnoses This section includes the primary and secondary diagnoses documented forthe Encounter. Date/Time Primary/Secondary Diagnosis Name Provider Source Diagnosis Jun 27, 2020 PRIMARY Thoracic aortic NICOLE,MAGDALENE GAINES RY 05:58 AM aneurysm, A MD without rupture Plan of Treatment: Future Appointments (+ 6 months) and Future Tests (+/- 45 days) The Plan of Treatment section includes future care activities for the patient from all [facility] facilities. This section includes future appointments and future orders which are active, pending or scheduled.Future Appointments This section includes appointments that were scheduled to occur 6 months from the date of the Encounter, up to a maximum of 20 appointments. The data comes from all [facility]. Appointment Date/Time Appointment Type Appointment Facili ty Name Jul 16, 2020 10:30 AM AMBULATORY - NONE [facility] Jul 23, 2020 10:00 AM AMBULATORY - NONE [facility] Active, Pending, and Scheduled Orders This section includes a listing of several types of active, pending, and scheduled orders, including clinic medications orders, diagnostic test orders, procedure orders and consult orders; where the start date of the order is 45 days before the date of the Encounter or 45 days after the date of the Encounter. The data comes from all [facility]. Test Date/Time Test Type Test Details Facility Name Jun 18, 2020 05:16 PM Consult Order VASCULAR SURGERY [facility] OUTPATIENT Cons Lead [facility] Radiology Reports: +/- 30 days of the encounter Radiology Reports For cases when an order for radiology services may have been completed prior tothe date of the Encounter, the report list includes the Radiology Reports that were completed up to 30 days before date of the Encounter. For cases when an order for radiology services may have been completed after the date of the Encounter, the report list also includes the Radiology Reports that were completed up to 30 days after date of the Encounter. The data comes from all [facility]. Date/Time Radiology Report Provider Source Jul 23, 2020 09:50 AM ULTRASOUND RUQ (GB,LIVER,BILIARY): Ghassan ANDERSON [facility] [place] [id number] -[birth year] 54 M [facility] Exm Date: JUL 23, 2020@09:50 Req Phys: BUCKY RABAGO Loc : LIT PACT F (Req'g Loc) Img Loc : ULTRASOUND (OOS) Service : Unknown (Case 42 COMPLETE) ULTRASO UND RUQ (GB,LIVER,BILIARY)(US Detailed) CPT:38916 Reason for Study: evaluate for artifact vs lesion Clinical History: Impression: A nonspecific hypoattenuating area/l esion versus volume averaging artifact in the left hepat ic dome. Consider further evaluation with an ultrasound. Report Status: Verified Da te Reported: JUL 23, 2020 Da te Verified: JUL 23, 2020 Rn Heart E-Sig:/ES/SERENITY ANDERSON Report: Ultrasound -- abdomen (RUQ): The current study is correlated with a [facility] CT of 07/16/2020. The liver is within normal limits in size and contour. In the liver dome adjacent to the origin of the j unction of the middle hepatic vein and IVC is a 2.2 cm clearly d efined echogenic lesion. In addition there is a 1.0 cm subt le hyperechoic lesion in the left lobe and a 0.9 cm lesion in th e right lobe, high in the right liver dome, is an ill-defined hy poechoic area with a couple of associated non-shadowing echogen icities -- estimated diameter of 1.6 cm. The area in question i s close to the diaphragm and difficult to assess due to m otion artifact. The liver echotexture is otherwise normal as i s the liver contour. The main portal vein measures 1.2 cm which is within normal limits. Color Doppler demonstrates patency and antegrade flow which can be tracked into the right and le ft portal veins. The gallbladder is physiologically distend ed. There are no detectable calculi nor is or wall thickeni ng or pericholecystic fluid. The patient is not tender to direct compression. The common bile duct is of normal caliber diogenes uring 3.3 mm. The pancreas is difficult to visualize due to adjacent bowel gas, however, there are no obvious masses or ev idence of pancreatic ductal dilatation. There is no free fluid in the right upper quadrant. The right kidney measures 10.1 cm in lengt h. The parenchyma is of normal thickness and echotexture. There is no evidence of a mass, detectable calculi or changes of hydroneph rosis. Impression: 1. 2.2 cm echogenic lesion of the liver d ome abutting the middle hepatic vein and IVC junction likely repre senting a hemangioma. A six-month follow-up ultrasound is recommen ded to confirm this impression. 2. 1.0 and 0.9 cm subtle echogenic liver l esions, left and right lobes -- probable hemangiomata. Lesions ca n be reassessed at the time of the patient's follow-up ultrasound . 3.? 1.6 cm lesion at the liver dome (mixed hypoechoic and echogenic elements). Findings may represen t an artifact resulting from its location high in the liver dome a nd adjacent cardiac motion artifact. Once again this area can be reassessed at the time the patient's follow-up ultrasound. Primary Diagnostic Code: NO IMMEDIATE ATTENT ION REQUIRED Primary Interpreting Staff: SERENITY ANDERSON, RADIOLOGY ATTENDING (Rn Heart ) /BRIAN Jul 16, 2020 10:[address] CHEST (INCLUDES ADRENALS): ZELDA MARROQUIN WILLIAM E [id number] -[birth year], [birth year] 54 M [facility] Exm Date: JUL 16, 2020@10:25 Req Phys: BUCKY RABAGO Loc : LIT PACT F (Req'g Loc) Img Loc : CT SCAN (OOS) Service : Unknown (Case 52 COMPLETE) CT THOR AX W/O CONT (CT Detailed) CPT:14870 Reason for Study: edvaluate ascendnng aorti c aneurysm Clinical History: No contrast allergy echocardiogram indicates dilation of ascen ding aorta has increased from 4.7cm to 5 cm. [facility] chest without contrast to verify a ccuracy of echo interpretation. results will determine need to go to [facility] so please do this on an urgent basis BUN: 30 (04/26/20 11:23) CREATI: 0.84 (04/26/20 11:23) eGFR 04/26/20 11:23 91 Weight: 175.4 lb [79.7 kg] (04/04/2020 09: 30) BODY MASS INDEX - APR 04, 2020@09:30:55 25.2 Pager number: [phone] STAT orders MUST be víctor led to RADIOLOGY [phone] to speak to the appropriate dental technician instructor. Indications - Other: increase in ascendnin g aorta dilation Report Status: Verified Da te Reported: JUL 16, 2020 Da te Verified: JUL 16, 2020 Rn Heart E-Sig:/ELIZABETH/ZELDA MARROQUIN Report: CT THORAX W/O CONT INDICATION: Evaluate ascending aortic aneu rysm COMPARISON: None TECHNIQUE: Chest CT was obtained without I V contrast. FINDINGS: Cardiomediastinum, Ngoc, lymph nodes and s oft tissues: No cardiomegaly or pericardial effusion. Mini mal right coronary artery calcification. Mild aortic calcific ations. No aortic valvular calcifications. There is dilatati on of the aortic root, measuring 4.7 cm in diameter. There is fus iform aneurysmal dilatation of the ascending aorta, measuri ng 4.9 x 4.9 cm (AP x TR). No lymphadenopathy in the chest. Unen hanced images of the thyroid gland appear unremarkable. Airways/Lungs/Pleura: No suspicious endot konstantin or endobronchial lesion. Mild biapical scarri ng is seen. There is minimal paraseptal and and question centri lobular emphysema. A sub-3 mm probable calcified granuloma is s een in the right middle lobe, suggestive of prior granulomatous di sease. A sub-3 mm noncalcified nonspecific nodule is seen in the right lower lobe (series 3, image 61). No definitely suspic ious pulmonary nodule or mass. No focal consolidation, pleural e ffusion, or pneumothorax. Upper Abdomen: There is a nonspecific hyp oattenuating area/lesion versus volume averaging artifa ct in the left hepatic dome. The liver has smooth contour. Incomp letely visualized gallbladder demonstrates no calcified gall stone. Unremarkable noncontrast appearance of the spleen, panc reas, adrenals, and visualized portions of the upper renal eddie es. Miscellaneous: None Musculoskeletal: No acute or suspicious o sseous abnormality. Multilevel degenerative disc disease in th e spine. Impression: 1. Fusiform ascending aortic aneurysm, me asuring 4.9 cm in diameter, and dilated aortic root, measuri ng 4.7 cm in diameter. Cardiology consultation is recommended. 2. A sub-3 mm noncalcified nonspecific nod ule in the right lower lobe (series 3, image 61). A follow-up low -dose chest CT may be performed in 12 months per [employer] guidelines if the patient has high risk for malignancy. 3. A sub-3 mm probable calcified granuloma in the right middle lobe, suggestive of prior granulomatous di sease. 4. A nonspecific hypoattenuating area/lesi on versus volume averaging artifact in the left hepatic dom e. Consider further evaluation with an ultrasound. Primary Diagnostic Code: NO IMMEDIATE ATTENT ION REQUIRED Secondary Diagnostic Codes: SIGNIFICANT ABNORMALITY ATTENTION NEEDED Primary Interpreting Staff: ZELDA MARROQUIN Staff (Rn Heart) /TH Encounter Notes: All associated encounter notes This section contains the clinical notes associated to the Encounter. Date/Time Encounter Note(s) Provider Source Jun 26, 2020 08:51 PM THORACIC SURGERY CONSULT: MAGDALENE RIVERA MD [place] LOCAL TITLE: CONSULT /CARDIAC SURGERY STANDARD TITLE: THORACIC SURGERY CONSULT DATE OF NOTE: JUN 26, 2020@20:51 ENTRY DATE: JUN 26, 2020@20:51:26 AUTHOR: MAGDALENE RIVERA MD EXP COSIGNER: URGENCY: STATUS: COMPLETED I personally reviewed pertinent history, laborat ory findings and imaging. No exam; chart review only. We are asked to evaluate patient whose T TE showed increase in aortic size from 4.7-5.0cm. His echo was undertaken to assess the aorta. Th e most recent study (06/2020) shows the aorta to be sized at 5.0cm. Was 4.7 o n echo from 04/15/19. EF 65%. Valve reported as tricuspid. Other findings unremarkable. Note patient's aorta sized at 4.7 based on 04/28/18 echo. Followed by cardiology for o ther cardiac issues including NSTEMI and hx of Afib with RVR; below, edits from Dr. Andrews's note f rom 12/13/18: PROBLEM LIST: 1. CAD -NSTEMI in the setting of afib with RVR (type II) -cardiac cath done at [facility] Cardiac cath 11/25/17: Widely pat ent large caliber vessels 2. Afib--one known episode--11/2017--waited 4 day s before presenting -presented with RVR (160's) -CHADS2 Vasc: 3 -converted back to sinus rhythm while in hospital at [facility] (same day as presentation) -On Apixaban since -on metoprolol for rate control -Bradenopatch 04/28/18-05/11/18 Indication: paroxysmal atrial fi brillation Impression: There were 3 triggered events and no diary entries during the 1 3 day and 3 hour monitoring period. The predominant underlying r hythm was sinus rhythm with average HR 69 bpm (range while in sinus rhythm: 4 1-119 bpm). No atrial fibrillation was seen. Rare supraventricular ecto py seen. 4. HTN -previously on just Losartan 50 mg qd -Metoprolol SA 100 mg qd added 11/2017 in the setting of afib episode 5. HL -x years, but had resisted statins -on Atorvastatin 80 mg qd since mid-March 2018 6. Dilated aortic root and ascending aorta: TTE 04/28/2018 Normal LV size, wall thickness and systo lic function. LVEF 65% Normal LV filling pressure. No rWMA RV is normal in size and systolic functi on Normal bi-atrial size No evidence for ASD or PFO MV is normal in structure and function No MR Trace TR PASP 20 mmHg+RAP (3)= 23 mmHg Mild AI Mild PI Aortic root is dilated at 4.3 cm Moderately dilated ascending aorta at 4. 7 cm ALLERGIES: MORPHINE Medications: ASA 81 mg qd Apixaban 5 mg bid Atorvastatin 40 mg--dose decreased for symptoms Losartan 50 mg qd Metoprolol SA 50 mg qhs (switched to PM dosing a nd dose halved for energy issues) Niacin 1,000/day MVI Glucosamine Based on JLV, his last couple BP readings were 1 13/74 (HR 60) on 04/04/20 and 138/77 (pulse rate 66) on 10/05/19. Summarizing, possible increase in aortic size fr om imaging study a year ago (4.7-5.0cm); albeit based on TTE which might be more subject to variation as opposed to CT chest. Based on last BP reading, appears controlled although note his pressure in September was higher. Please obtain a baseline CT chest - my b ias is this can be noncontrast at this time. Rescan in six months. If no change, woul d obtain another study at one year and continue annual scan thereafter. If no change after five years, we often stop routine imaging. Please consider on-site eval if he develops any of the following: - increase of more than 5mm over an imaging gildardo od - aortic size reaches 5.5-6.0 cm (for tricuspid valve, which patient has) - other reason the patient may need cardiac surg ical correctional counselor/case manager - e.g. ischemic heart disease of valve issue such as AI). Continue to closely monitor patient's BP; appears well controlled now; however, if it starts to rise, consid er restarting his Losartan (aiming for BP in 110-120 range) while continuing beta-alice. If patien t is anxious about this potential size increase and wishes direct correctional counselor/case manager, please don't hesitate to have him call the office ([phone]), we c an always set up a [facility] appt to discuss or give him a call. Thanks. /elizabeth/ MAGDALENE RIVERA MD Cardiac Surgery Signed: 06/27/2020 05:58
--- OUTSIDE RECORDS SUMMARY | 2020-09-17 11:43 | XMS_ITS | Encounter Summary ---
:1950 [address] [facility] Address [address] [place] [address] Care Team Providers Name Role Phone BUCKY [...] MEDICARE MEDICARE PART Jul 15, PART A [id number] Inder WADE PATIENT (WNR) (M) A 2016 [id number] ILLIAM MEDICARE MEDICARE PART Jul 15, PART A [id number] BULLOC JerriW PATIENT (WNR) (M) A 2016 86A 1 ILLIAM MEDICARE MEDICARE PART Jul 15, PART A [id number] STEPHANIE GuthrieW PATIENT (WNR) (M) A 2016 86A 1 ILLIAM Selected Encounter This section includes the information on record at [place] for the Encounter. Date/Time Encounter Type Encounter Reason Provider Source Description Nov 15, 2019 CP COLONOSCOPY GI ENDOSCOPY ICD-10-CM D12.0 EDY HAYNES 08:00 AM Benign neoplasm H of cecum with Provider Comments: Benign neoplasm,Cecum IHE Encounter Template Text not used by [facility] Assessments - Encounter Diagnoses This section includes the primary and secondary diagnoses documented forthe Encounter. Date/Time Primary/Secondary Diagnosis Name Provider Source Diagnosis Nov 15, 2019 PRIMARY Benign neoplasm EMILY RUTH 09:49 AM of cecum [facility] Plan of Treatment: Future Appointments (+ 6 months) and Future Tests (+/- 45 days) The Plan of Treatment section includes future care activities for the patient from all [place] treatment facilities. This section includes future appointments and future orders which are active, pending or scheduled.Future Appointments This section includes appointments that were scheduled to occur 6 months from the date of the Encounter, up to a maximum of 20 appointments. [facility] Appointment Date/Time Appointment Type Appointment Facili ty Name Apr 04, 2020 09:30 AM AMBULATORY - MEDICINE [facility] Apr 26, 2020 11:30 AM AMBULATORY - NONE [facility] IN Surgical Procedures: All associated to the encounter This section includes all Surgical Procedures and Surgical Procedure Notes associated to the Encounter.Surgical Procedures This section includes all Surgical Procedures associated to the Encounter.Surgical Procedure Date/Time Procedure Procedure Type Procedure Provider Source Qualifiers Nov 15, 2019 CP COLONOSCOPY CLINICAL,DEVICE I TRENA BLAIR 12:00 AM PROXY SERVICE [facility] Surgical Notes This section includes all Surgical Notes associated to the Procedure. Date/Time Surgical Procedure Note Provider [facility] GASTROENTEROLOGY PROCEDURE REPORT: CLINI KRIS,DEVICE 03, LOCAL TITLE: Colonoscopy Procedure Resu lt/Gastroenterology PROXY SERVICE 2019 STANDARD TITLE: GASTROENTEROLOGY PROCEDU RE REPORT 09:49 DATE OF NOTE: NOV 15, 2019@09:49:22 ENT RY DATE: NOV 15, 2019@09:49:22 AM AUTHOR: CLINICAL,DEVICE PRO EXP C OSIGNER: URGENCY: STATUS: COMPLETED Colonoscopy Procedure Result/Gregor roenterology Has ADDENDA DOCUMENT IN VISTA IMAGING SEE FULL REPORT IN VISTA IMAGING SIGNATURE NOT REQUIRED SEE SIGNATURE IN VISTA IMAGING (ENDOSOFT COLONOSCOPY) AUTO-INSTRUME NT DIAGNOSIS Procedure: COLONOSCOPY Colonoscopy Release Status: Released Off-Line Veri ed Date Verified: Nov 15, 2019 Patient Name: GRADY VILLEGAS Date of : 1950 Date/Time of Procedure: 11/15/2019 / 09:00 :00 AM Physician: Seun Haynes MD Fellow: Nurse: [employer] Associate: 168 Indications: Screening Colonoscopy. Procedure Performed: Colonoscopy - snare polypectomy Extent of Exam: cecum Instruments: Loaner [id number] Procedure Technique: Patient's medications, allergies, past m edical, surgical, social and family histories were reviewed and updated as a ppropriate. A discussion of informed consent was had with the patient and/or the patient's family prior to the procedure, including sedation. The alternatives, benefits and risks of the procedure including but not limi john to perforation, hemorrhage, infection, adverse drug reaction and asp iration were discussed Description of Procedure: After discussion of informed consent, an d appropriate level of sedation were attained, the patient was placed in the left lateral position. The patient was monitored continuously with pulse oximetry, blood pressure monitoring, and direct observations. After digital rectal examination, the co lonoscope Loaner [id number] was inserted into the rectum and advanced under direc t vision to the level of the cecum. The quality of the colonic preparation was . A careful inspection was made as the colonoscope was withdrawn. Findings and interventions are described below. Findings: diverticular disease remant of polyp in Cecum??? Cold snared Diagnosis: Colon Polyp. Visualization: Tolerance: Good Total Procedure Time: 19 Withdrawal Time: 00:14:02 Technical Difficult Exam: Limitations of Exam: Estimated Blood Loss: None Cc Complications: Sedation Scores: Medications: Midazolam 4 mg Fentanyl 150 mcg Recommendations: [place] Bowel Prep Score: Right Colon: 3 Transverse Colon: 3 Left Colon: 3 Total: 9 CPT Codes: 55233 Colonoscopy, flexible; with remova l of tumor(s), polyp(s), or other lesion(s) by snare technique ICD Codes: This electronic signature authenticates all electronic and/or handwritten documentation, including orders, generat ed by the signer during the episode of care contained in this record. 11/15/2019 09:46:22 AM By Seun Haynes MD Administrative Closure: 11/15/2019 by: Clinical,Device Proxy Service 11/16/2019 ADDENDUM STATUS: COMPLETED Report ---- SURGICAL PATHOLOGY ---- Reporting Lab: [facility] [CLIA# [id number]] [address] [place] [address] - - - - - - - [...] - - - - - - - Submitted by: SEUN HAYNES Date obtained: Nov 15, 2019 11:49 [...] - - - - POSTOPERATIVE DIAGNOSIS: Surveillance Surgeon/phys camronan: SEUN HAYNES MD =-=-=-=-=-=-=-=-=-=-=-=-=-=-=-=-=-=-=-=-=-=-=-=-=-=-=-=-=-=-=-=-=-=-=-=-=-=-=-= - - - - - - - [...] Label: Grady Villegas Paperwork: Grady Villegas Cassette: [id number]---[id number] [facility]--405 Specimen is labeled: 1 C Received in formalin is a piece of glistening pale gallegos tissue, 0.4 x 0.1 x 0.1 cm. Submitted entirely in 1 cassette [id number]---[id number],WILLIAM--405 11/15/2019 Microscopic exam: DIAGNOSIS: Cecum, biopsy: Mucosa with mild reactive changes, negative for remnants of adenomatous polyp The attending pat hologist whose signature appears on this report has reviewed all diagnostic slides and has edited the gross and/or microscopic portion of this report in rendering the final pathologic diagnosis. [address] [address] CPT: 11950 /es/ RADHA MOSER pathologist Signed Nov 16, 2019@13:54 Performing Laboratory: Surgical Pathology Report Performed By: [facility] [CLIA# [id number]] [address] [place] [id number] - - - - - - - [...] - - GRADY VILLEGAS STANDARD FORM 515 ID:[id number] SEX:M :1950 A GE: 69 LOC:[facility] END PCP: Bucky Rabago DO Facility: [facility] NOV 16, 2019 Mr. Grady Villegas [address], [place] [address] SUBJ: Follow up of recent colonoscopy SSN: [id number] Dear Mr. Villegas, I just wanted to follow up on the colonoscopy that you recently underwent at the [facility]. As you odalys l recall, we did remove a polyp from your colon. It was sent to the lab for a nalysis under the microscope. The pathology lab read it as normal so there is no remnant of the polyps. The general recommendation for patients who make such polyps in their colon as you have had in the past is to h ave subsequent follow up exams. Therefore, we would recommend a repeat colonoscopy in 3 year s to check whether any new polyps have formed. We have placed a reminder in you r electronic medical record. That reminder should prompt your primary car e doctor to talk with you about repeating your colonoscopy w hen it is due. Of course, you can remind us around that time as well! I want to thank you again for allowing me to participate in your care. Should you have any questions or concerns, please do not hesitate to contact my office at [phone] (exten [phone]). Best Wishes, Seun Haynes M.D. [facility] Follow Up Colonoscopy: Colonoscopy is due based on informat ion available to this reminder. A new due date is necessary. Justification: adenoma > 1 cm Colonoscopy reminder set 3 years f rom NOV 16, 2019. /elizabeth/ SEUN Tolliver MD Signed: 11/16/2019 14:10 11/16/2019 ADDENDUM STATUS: COMPLETED I want to make clear that I inspected th e cecum and found a tiny polyp that I think was the remnant of the previous polyp but the biopsy showed normal tissue /elizabeth/ SEUN Tolliver MD Signed: 11/16/2019 14:17 Pathology Reports: +/- 30 days of the [...] the Encounter. The data comes from all [place] treatment facilities. Date/Time Pathology Report Provider Source Nov 16, 2019 01:54 PM LR SURGICAL PATHOLOGY REPORT: RADHA MOSER [facility] LOCAL TITLE: LR SURGICAL PATHOLOGY REPORT [facility] STANDARD TITLE: PATHOLOGY REPORT DATE OF NOTE: NOV 16, 2019@13:54:10 ENTRY DATE: NOV 16, 2019@13:54:10 AUTHOR: RADHA MOSER EXP COSIGNER: URGENCY: STATUS: COMPLETED $APHDR Reporting Lab: [facility] [CLIA# [id number]] [address] [phone] - - - - - - - [...] - - - - $TEXT Submitted by: SEUN HAYNES Date obtained: Nov 15, 2019 11:49 [...] Label: Grady Villegas Paperwork: Grady Villegas Cassette: [id number]---[id number],WILLIAM--405 Specimen is labeled: 1 C Received in formalin is a piece of glisteni ng pale gallegos tissue, 0.4 x 0.1 x 0.1 cm. Submitted entirely in 1 cassette [id number]---[id number],WILLIAM--405 11/15/2019 Microscopic exam: DIAGNOSIS: Cecum, biopsy: Mucosa with mild reactive changes, negative for remnants of adenomatous polyp The attending pathologist whos e signature appears on this report has reviewed all diagnostic slides and has edit ed the gross and/or microscopic portion of this report in rende ring the final pathologic diagnosis. [address] [address] CPT: 31181 /es/ RADHA MOSER pathologist Signed Nov 16, 2019@13:54 Performing Laboratory: Surgical Pathology Report Performed By: [facility] [CLIA# [id number]] [address], [place] [address] $FTR - - - - - - [...] - - GRADY VILLEGAS STANDARD FORM 515 ID:[id number] SEX:M :1950 AGE: 69 LO C:[facility] END PC P: Bucky Rabago, DO /es/ RADHA MOSER pathologist Signed: 11/16/2019 13:54 Encounter Notes: All associated encounter notes This section contains the clinical notes associated to the Encounter. Date/Time Encounter Note(s) Provider Source Nov 15, 2019 09:49 AM GASTROENTEROLOGY PROCEDURE REPORT: [facility] [place] LOCAL TITLE: Colonoscopy Procedure Result/Gastr oenterology [facility] STANDARD TITLE: GASTROENTEROLOGY PROCEDURE REPOR T DATE OF NOTE: NOV 15, 2019@09:49:22 ENTRY DATE: NOV 15, 2019@09:49:22 AUTHOR: CLINICAL,DEVICE PRO EXP COSIGNER: URGENCY: STATUS: COMPLETED Colonoscopy Procedure Result/Gastroentero logy Has ADDENDA DOCUMENT IN VISTA IMAGING SEE FULL REPORT IN VISTA IMAGING SIGNATURE NOT REQUIRED SEE SIGNATURE IN VISTA IMAGING (ENDOSOFT COLONOSCOPY) AUTO-INSTRUMENT DIAGN OSIS Procedure: COLONOSCOPY Colonoscopy Release Status: Released Off-Line Verified Date Verified: Nov 15, 2019 Patient Name: GRADY VILLEGAS Date of : 1950 Date/Time of Procedure: 11/15/2019 / 09:00:00 AM Physician: Seun Haynes MD Fellow: Nurse: [employer]: 168 Indications: Screening Colonoscopy. Procedure Performed: Colonoscopy - snare polypec elton Extent of Exam: cecum Instruments: Kathie [id number] Procedure Technique: Patient's medications, allergies, past medical, surgical, social and family histories were reviewed and updated as appropria te. A discussion of informed consent was had with the patient and/or the austin ent's family prior to the procedure, including sedation. The alternat jasper, benefits and risks of the procedure including but not limited to p erforation, hemorrhage, infection, adverse drug reaction and aspiration were discussed Description of Procedure: After discussion of informed consent, and approp riate level of sedation were attained, the patient was placed in the lef t lateral position. The patient was monitored continuously with pulse ox imetry, blood pressure monitoring, and direct observations. After digital rectal examination, the colonoscop e Loaner [id number] was inserted into the rectum and advanced under direct vision to the level of the cecum. The quality of the colonic preparation was . A careful inspection was made as the colonoscope was withdrawn. Findings and interventions are described below. Findings: diverticular disease remant of polyp in Cecum??? Cold snared Diagnosis: Colon Polyp. Visualization: Tolerance: Good Total Procedure Time: 19 Withdrawal Time: 00:14:02 Technical Difficult Exam: Limitations of Exam: Estimated Blood Loss: None Cc Complications: Sedation Scores: Medications: Midazolam 4 mg Fentanyl 150 mcg Recommendations: [place] Bowel Prep Score: Right Colon: 3 Transverse Colon: 3 Left Colon: 3 Total: 9 CPT Codes: 74828 Colonoscopy, flexible; with removal of paul or(s), polyp(s), or other lesion(s) by snare technique ICD Codes: This electronic signature authenticates all elec tronic and/or handwritten documentation, including orders, generated by e signer during the episode of care contained in this record. 11/15/2019 09:46:22 AM By Seun Haynes MD Administrative Closure: 11/15/2019 by: Clinical,Device Proxy rvice 11/16/2019 ADDENDUM STATUS: COMPLETED Report ---- SURGICAL PATHOLOG Y ---- Reporting Lab: [facility] [CLIA# [id number]] [address] [place] [address] - - - - - - - - - - - - - - - - - - - - - - - - - - - - - - - - - - - - - - - - MEDICAL RECORD SURGICA L PATHOLOGY - - - - - - [...] - - - - - - - Submitted by: SEUN HAYNES Date obtained: Nov 15, 2019 11:49 [...] - - - POSTOPERATIVE DIAGNOSIS: Surveillance Surgeon/physician: Derian HAYNES MD =-=-=-=-=-=-=-=-=-=-=-=-=-=-=-=-=-=-=-=-=-=-=-=-=-=-=-=-=-=-=-=-=-=-=-=-=-=-=-= - - - - - - - [...] Label: Grady Villegas Paperwork: Grady Villegas Cassette: [id number]---[id number],WILLIAM--405 Specimen is labeled: 1 C Received in formalin is a piece of glistening pale gallegos tissue, 0.4 x 0.1 x 0.1 cm. Submitted entirely in 1 cassette [id number]---[id number],WILLIAM--405 11/15/2019 Microscopic exam: DIAGNOSIS: Cecum, biopsy: Mucosa with mild reactive changes, negativ e for remnants of adenomatous polyp The attending pat hologist whose signature appears on this report has reviewed all diagnostic slides and has balta john the gross and/or microscopic portion of this report in elli villa the final pathologic diagnosis. [address] [address] CPT: 33772 /es/ RADHA MOSER pathologist Signed Nov 16, 2019@13:54 Performing Laboratory: Surgical Pathology Report Performed By: [facility] [CLIA# [id number]] [address] [place] [address] - - - - - - - [...] - - GRADY VILLEGAS STANDARD FORM 515 ID:[id number] SEX:M :1950 AGE: 69 L OC:SDM END P CP: Bucky Rabago DO Facility: [facility] NOV 16, 2019 Mr. Mariee Bakari [address], [place] [address] SUBJ: Follow up of recent colonoscopy SSN: [id number] Dear Mr. Villegas, I just wanted to follow up on the colonoscopy that you recently underwent at the [facility]. As you will recall , we did remove a polyp from your colon. It was sent to the lab for analysis under the microscope. The pathology lab read it as normal so there is no r emnant of the polyps. The general recommendation for patients who make such polyps in their colon as you have had in the past is to h ave subsequent follow up exams. Therefore, we would recommend a repeat colonoscopy in 3 year s to check whether any new polyps have formed. We have placed a reminder in your electr onic medical record. That reminder should prompt your primary care doctor to talk with you about repeating your colonoscopy w hen it is due. Of course, you can remind us around that time as well! I want to thank you again for allowing me to participate in your care. Should you have any questions or concerns, please do not hesitate to contact my office at [phone] (extension [phone]). Best Wishes, Seun Haynes M.D. [facility] Follow Up Colonoscopy: Colonoscopy is due based on information april marcusle to this reminder. A new due date is necessary. Justification: adenoma > 1 cm Colonoscopy reminder set 3 years from NOV 16, 2019. /elizabeth/ SEUN Tolliver MD Signed: 11/16/2019 14:10 11/16/2019 ADDENDUM STATUS: COMPLETED I want to make clear that I inspected the cecum and found a tiny polyp that I think was the remnant of the previous polyp but the biopsy showed normal tissue /elizabeth/ SEUN Tolliver MD Signed: 11/16/2019 14:17 Nov 15, 2019 09:11 AM RESEARCH CONSENT: SEUN HAYNES [place] LOCAL TITLE: Research Project/Patient Consent [facility] STANDARD TITLE: RESEARCH CONSENT DATE OF NOTE: NOV 15, 2019@09:11 ENTRY DATE: NOV 15, 2019@09:11:13 AUTHOR: SEUN HAYNES EXP COSIGNER: URGENCY: STATUS: COMPLETED Name of Study: cold versus hot snare Person obtaining consent: participant entered the study: Nov Participant is capable of understanding the cons ent process: Yes The study was explained to the participant: Yes Participant meets inclusion/exclusion criteria: Yes Participant was given the opportunity to ask que stions: Yes Participant was consented before research was in itiated: YES Participant was given a copy of the signed infor med consent: YES Participant was given a copy of Volunteering in Research brochure: NO Please note: The patient consent has been scann ed into the electronic record and can be viewed by using the Image View er as follows: In [employer] FINN, click 'Tools Menu' > 'Image Display (Viewer)' or 'Thin Client Image Display (Viewer)' dependin g on your computer. /elizabeth/ SEUN Tolliver MD Signed: 11/15/2019 09:11 Nov 15, 2019 09:09 AM GASTROENTEROLOGY NOTE: SEUN HAYNES [place] LOCAL TITLE: GI PREPROCEDURE NOTE [facility] STANDARD TITLE: GASTROENTEROLOGY NOTE DATE OF NOTE: NOV 15, 2019@09:09 ENTRY DATE: NOV 15, 2019@09:10:05 AUTHOR: SEUN HAYNES EXP COSIGNER: URGENCY: STATUS: COMPLETED Pre-Procedure History and Physical Examination Procedure: colon Indication: adenoma I have reviewed the H&P within 30 days, and note no changes. History:69 year old patient with adenoma Last oral intake (time and nature):NPO since mid night, Othersplit History of complications with sedation: No Current Tobacco No Current ETOH No Type/frequency Ilicit drugs No Type/frequency REVIEW OF SYSTEMS: Relevant system reveals no significant findings ROS findings Active Problem List Subsequent NSTEMI (non-ST segment elevatHLD - Hy perlipidemia ([facility] [id number]) AF- Atrial Fibrillation ([facility] [id number]) CHF - Co ngestive heart failure ([facility] [id number]) HTN - Hypertension ([facility] [id number]) Medications Active Outpatient Medications (exclu ding Supplies): Active Outpatient Medications Status 1) ATORVASTATIN CALCIUM 40MG TAB TAKE ONE TABL ET BY ACTIVE MOUTH EVERY DAY TO LOWER CHOLESTEROL 2) COLON ELECTROLYTE LAVAGE PWD FOR SOLN TAKE 1 GALLON ACTIVE BY MOUTH DIRECTED - DO NOT START COLON OSCOPY PREPARATION UNTIL YOU ARE CONTACTED BY [facility] GASTROENTEROLOGY DEPARTMENT WITH INSTRUCT IONS PREPARE...STARTING AT 6PM THE DAY PRIOR T O YOUR PROCEDURE, DRINK 8OZ EVERY 20 MINUTES UN TIL DONE WITH THE FIRST HALF GALLON(64OZ). STARTI NG 6 HOURS BEFORE YOUR PROCEDURE TIME, DRINK 8OZ KATEY RY 20 MINUTES UNTIL DONE WITH SECOND HALF GALL ON(64OZ). 3) METOPROLOL SUCCINATE 50MG SA TAB TAKE ONE T ABLET BY ACTIVE MOUTH EVERY EVENING FOR BLOOD PRESSURE/HE ART NOTE TABLET STRENGTH/DIRECTIONS Active Non-VA Medications Status 1) Non-VA ASPIRIN 81MG EC TAB 81MG BY MOUTH EV ABRAHAM DAY ACTIVE 4 Total Medications Allergies MORPHINE EXAM: GENERAL:138/77 (10/05/2019 15:06) 66 (10/05/2019 15:06), A&O x3, NAD HEENT: Airway examined, oropharynx clear Mallampati class: 2 LUNGS: Clear to auscultation HEART: Regular rate and rhythm, normal S1, S2 ABDOMEN: Normal bowel sounds, soft, non-distende d, non-tender EXTREMITIES: No edema A/P Proceed with the planned procedure. ASA class 2 Sedation plan: Moderate sedation Risks and benefits of the procedure explained to patient. Consent signed. /es/ SEUN Tolliver MD Signed: 11/15/2019 09:10
--- OUTSIDE RECORDS SUMMARY | 2020-09-17 11:43 | XMS_ITS | Encounter Summary ---
:1950 [address] [facility] Address [address] [place] [address] Care Team Providers Name Role Phone BUCKY [...] MEDICARE MEDICARE PART Jul 15, PART A [id number] Inder WADE PATIENT (WNR) (M) A 2016 [id number] ILLIAM MEDICARE MEDICARE PART Jul 15, PART A [id number] Inder WADE PATIENT (WNR) (M) A 2016A 1 ILLIAM MEDICARE MEDICARE PART Jul 15, PART A [id number] STEPHANIE GuthrieW PATIENT (WNR) (M) A 2016A 1 ILLIAM Selected Encounter This section includes the information on record at [place] for the Encounter. Date/Time Encounter Type Encounter Reason Provider Source Description Oct 05, 2019 Outpatient PRIMARY ICD-10-CM E78.5 CINDA GODWIN P 03:00 PM Encounter CARE/MEDICINE Hyperlipidemia, unspecified with Provider Comments: Hyperlipidemia, unspecified IHE Encounter Template Text not used by [facility] Assessments - Encounter Diagnoses This section includes the primary and secondary diagnoses documented forthe Encounter. Date/Time Primary/Secondary Diagnosis Name Provider Source Diagnosis Oct 20, 2019 PRIMARY Hyperlipidemia, CASEY JAUREGUI URY 11:11 AM unspecified [facility] Oct 20, 2019 SECONDARY Essential CASEY JAUREGUI 11:11 AM (primary) [facility] hypertension Oct 20, 2019 SECONDARY Subsequent non-ST CASEY JAUREGUI SBURY 11:11 AM elevation (NSTEMI) [facility] myocardial infarction Oct 20, 2019 SECONDARY Unspecified atrial CASEY JAUREGUI 11:11 AM fibrillation [facility] Plan of Treatment: Future Appointments (+ 6 months) and Future Tests (+/- 45 days) The Plan of Treatment section includes future care activities for the patient from all [place] treatment facilities. This section includes future appointments and future orders which are active, pending or scheduled.Future Appointments This section includes appointments that were scheduled to occur 6 months from the date of the Encounter, up to a maximum of 20 appointments. The data comes from all [facility]. Appointment Date/Time Appointment Type Appointment Facili ty Name Nov 15, 2019 08:00 AM AMBULATORY - MEDICINE [facility] Nov 15, 2019 08:01 AM AMBULATORY MEDICINE [facility] Apr 04, 2020 09:30 AM AMBULATORY - MEDICINE [facility] Social History: Smoking Status (Most current) and Tobacco Use (All prior to encounter date) This section includes the most current, and the historical, smoking and tobacco-related health factors from the [place] facility where the Encounter took place.Current Smoking Status This section includes the most current smoking, or tobacco-related health factor, from the [place] facility where the Encounter took place. Date/Time Current Smoking Status Comment Facility Oct 04, 2019 10:30 AM VA-TOBACCO NEVER USED [facility] Tobacco Use History This section includes a history of the smoking, or tobacco-related health factors, that were collected on or before the date of the Encounter. The data comes from the [place] facility where the Encounter took place. Date/Time Smoking Status/Tobacco Use Comment [facility] Apr 01, 2018 11:56 AM VA-TOBACCO FORMER USER [facility] Apr 01, 2018 11:56 AM VA-TOBACCO QUIT 15 YRS OR MORE [facility] Encounter Notes: All associated encounter notes This section contains the clinical notes associated to the Encounter. Date/Time Encounter Note(s) Provider Source Oct 05, 2019 03:08 PM PRIMARY CARE ANNUAL EVALUATION NOTE: GIOVANNY CHARLES [facility] LOCAL TITLE: Preventive Health Annual Review STANDARD TITLE: PRIMARY CARE ANNUAL EVALUATION N OTE DATE OF NOTE: OCT 05, 2019@15:08 ENTRY DATE: OCT 05, 2019@15:08:11 AUTHOR: GIOVANNY JOE EXP COSIGNER: URGENCY: STATUS: COMPLETED Advance Directive Screen: Patient has an up-to-date Advance Directiv e document, but it is not on file at this [facility]. Patient has been re quested to forward a copy to his/her clinician. The patient received education about advan ce directives as well as written notification of his/her rights. Tobacco Use Screening: The patient has never used tobacco. /elizabeth/ GIOVANNY JOE [facility] Social Worker Signed: 10/05/2019 15:08
--- OUTSIDE RECORDS SUMMARY | 2020-09-17 11:44 | XMS_ITS | Encounter Summary ---
:[address] [facility] Address [address] [place] [address] Care Team Providers Name Role Phone HIMABUCKY [...] MEDICARE MEDICARE PART Jul 15, PART A [id number] STEPHANIE JerriInder PATIENT (WNR) (M) A 2016 [id number] ILLIAM MEDICARE MEDICARE PART Jul 15, PART A [id number] STEPHANIE GuthrieInder PATIENT (WNR) (M) A 2016A 1 ILLIAM MEDICARE MEDICARE PART Jul 15, PART A [id number] STEPHANIE JerriW PATIENT (WNR) (M) A 2016A 1 ILLIAM Selected Encounter This section includes the information on record at [place] for the Encounter. Date/Time Encounter Type Encounter Description Reason Provider Source Jul 16, 2020 02:42 Outpatient Encounter PRIMARY CARE/MEDICINE PM IHE Encounter Template Text not used by [place] Plan of Treatment: Future Appointments (+ 6 months) and Future Tests (+/- 45 days) The Plan of Treatment section includes future care activities for the patient from all [place] treatment facilities. This section includes future appointments and future orders which are active, pending or scheduled.Future Appointments This section includes appointments that were scheduled to occur 6 months from the date of the Encounter, up to a maximum of 20 appointments. The data comes from all [facility]. Appointment Date/Time Appointment Type Appointment Facili ty Name Jul 23, 2020 10:00 AM AMBULATORY - NONE [facility] Active, Pending, and Scheduled Orders This section includes a listing of several types of active, pending, and scheduled orders, including clinic medications orders, diagnostic test orders, procedure orders and consult orders; where the start date of the order is 45 days before the date of the Encounter or 45 days after the date of the Encounter. The data comes from all [facility]. Test Date/Time Test Type Test Details Facility Name Jun 18, 2020 05:16 PM Consult Order VASCULAR SURGERY [facility] OUTPATIENT Cons Emt I/99's Choice Social History: Smoking Status (Most current) and Tobacco Use (All prior to encounter date) This section includes the most current, and the historical, smoking and tobacco-related health factors from the [place] facility where the Encounter took place.Current Smoking Status This section includes the most current smoking, or tobacco-related health factor, from the [place] facility where the Encounter took place. Date/Time Current Smoking Status Comment Facility Oct 04, 2019 10:30 AM [place]-TOBACCO NEVER USED [facility] Tobacco Use History This section includes a history of the smoking, or tobacco-related health factors, that were collected on or before the date of the Encounter. The data comes from the [place] facility where the Encounter took place. Date/Time Smoking Status/Tobacco Use Comment Facil ity Apr 01, 2018 11:56 AM VA-TOBACCO FORMER USER [facility] Apr 01, 2018 11:56 AM [place]-TOBACCO QUIT [address] [facility] Radiology Reports: +/- 30 days of the [...] the Encounter. The data comes from all [facility]. Date/Time Radiology Report Provider Source Jul 23, 2020 09:50 AM ULTRASOUND RUQ (GB,LIVER,BILIARY): Ghassan ANDERSON [facility] [address] [id number] -[birth year] 54 M [facility] Ex Date: JUL 23, 2020@09:50 Req Phys: BUCKY RABAGO Loc : LIT PACT F (Req'g Loc) Img Loc : ULTRASOUND (OOS) Service : Unknown (Case 42 COMPLETE) ULTRASO UND RUQ (GB,LIVER,BILIARY)(US Detailed) CPT:22621 Reason for Study: evaluate for artifact vs lesion Clinical History: Impression: A nonspecific hypoattenuating area/l esion versus volume averaging artifact in the left hepat ic dome. Consider further evaluation with an ultrasound. Report Status: Verified Da te Reported: JUL 23, 2020 Da te Verified: JUL 23, 2020 Head Wrestling Coach E-Sig:/ES/SERENITY ANDERSON Report: Ultrasound -- abdomen (RUQ): The current study is correlated with a [facility] CT of 07/16/2020. The liver is [...] Primary Interpreting Staff: SERENITY ANDERSON, RADIOLOGY ATTENDING (Head Wrestling Coach ) /BRIAN Jul 16, 2020 10:[address] CHEST (INCLUDES ADRENALS): ZELDA MARROQUIN [facility] [address] [place] Billy [id number] -[birth year] 54 M [facility] Ex Date: JUL 16, 2020@10:25 Req Phys: BUCKY RABAGO Loc : LIT PACT F (Req'g Loc) Img Loc : CT SCAN (OOS) Service : Unknown (Case 52 COMPLETE) CT THOR AX W/O CONT (CT Detailed) CPT:09403 Reason for Study: edvaluate ascendnng aorti c aneurysm Clinical History: No contrast allergy echocardiogram indicates dilation of ascen ding aorta has increased from 4.7cm to 5 cm. [facility] oracr surgery request CT scan chest without contrast to verify a ccuracy of echo interpretation. results will determine need to go to [facility] so please do this on an urgent basis BUN: 30 (04/26/20 11:23) CREATI: 0.84 (04/26/20 11:23) eGFR 04/26/20 11:23 91 Weight: 175.4 lb [79.7 kg] (04/04/2020 09: 30) BODY MASS INDEX - APR 04, 2020@09:30:55 25.2 Pager number: [phone] STAT orders MUST be víctor led to RADIOLOGY [id number] to speak to the appropriate orthodontic lab technician. Indications - Other: increase in ascendnin g aorta dilation Report Status: Verified Da te Reported: JUL 16, 2020 Da te Verified: JUL 16, 2020 Head Wrestling Coach E-Sig:/ES/ZELDA MARROQUIN Report: CT THORAX W/O CONT INDICATION: [...] NEEDED Primary Interpreting Staff: ZELDA MARROQUIN Staff (Head Wrestling Coach) / Encounter Notes: All associated encounter notes This section contains the clinical notes associated to the Encounter. Date/Time Encounter Note(s) Provider Source Jul 16, 2020 02:42 PM LETTERS: BUCKY RABAGO [facility] LOCAL TITLE: Letter to Patient [facility] STANDARD TITLE: LETTERS DATE OF NOTE: JUL 16, 2020@14:42 ENTRY DATE: JUL 16, 2020@14:42:09 AUTHOR: BUCKY RABAGO EXP COSIGNER: URGENCY: STATUS: COMPLETED [facility] [address] [place] [address] JUL 16, 2020 [address], [place] [address] Dear Leland Bakari, Attached are the results from yopur recent CT sc an thorax. Impression: 1. Fusiform ascending aortic aneurysm, cammie suring 4.9 cm in diameter, and dilated aortic root, measuri ng 4.7 cm in diameter. Cardiology consultation is recommended. a. I am waiting for a response from the surgeon, but this is smaller than we saw on the echocardiogram - good. 2. A sub-3 mm noncalcified nonspecific nod ule in the right lower lobe (series 3, image 61). A follow-up low -dose chest CT may be performed in 12 months per [employer] guidelines if the patient has high risk for malignancy. a. This is a standard follow up - test is ordered for 12 months. 3. A sub-3 mm probable calcified granuloma in the right middle lobe, suggestive of prior granulomatous di sease. a. No worries. 4. A nonspecific hypoattenuating area/lesi on versus volume averaging artifact in the left hepatic dom e. Consider further evaluation with an ultrasound. a. We shyould look at this with an ultr asound of the liver/right upper quadrant - test is ordered. Please don't hesitate to call if you have any qu estions or concerns, . Sincerely, BUCKY Colvin OC
--- OUTSIDE RECORDS SUMMARY | 2020-09-17 11:44 | XMS_ITS | Encounter Summary ---
:1950 Author Organization Department [facility] Address [address] [place] [address] Care Team Providers Name Role Phone HIMABUCKY [...] MEDICARE MEDICARE PART Jul 15, PART A [id number] Inder WADE PATIENT (WNR) (M) A 2016 [id number] ILLIAM MEDICARE MEDICARE PART Jul 15, PART A [id number] KWABENAAURY JerriW PATIENT (WNR) (M) A 2016A 1 ILLIAM MEDICARE MEDICARE PART Jul 15, PART A [id number] BULLAURY GuthrieW PATIENT (WNR) (M) A 2016A 1 ILLIAM Selected Encounter This section includes the information on record at [place] for the Encounter. Date/Time Encounter Type Encounter Description Reason Provider Source Jun 27, 2020 09:36 Outpatient Encounter TELEPHONE TRIAGE AM IHE Encounter [...] 20 appointments. The data comes from all [facility]. Appointment Date/Time Appointment Type Appointment Facili ty Name Jul 16, 2020 10:30 AM AMBULATORY - NONE [facility] Jul 23, 2020 10:00 AM AMBULATORY - NONE [facility] Active, Pending, and Scheduled Orders This section includes a listing of several types of active, pending, and scheduled orders, including clinic medications orders, diagnostic test orders, procedure orders and consult orders; where the start date of the order is 45 days before the date of the Encounter or 45 days after the date of the Encounter. The data comes from all [facility]. Test Date/Time Test Type Test Details Facility Name Jun 18, 2020 05:16 PM Consult Order VASCULAR SURGERY [facility] OUTPATIENT Cons Bleach Supervisor's Choice Radiology Reports: +/- 30 days of [...] the Encounter. The data comes from all [facility]. Date/Time Radiology Report Provider Source Jul 23, 2020 09:50 AM ULTRASOUND RUQ (GB,LIVER,BILIARY): Ghassan ANDERSON [facility] [address] Billy [id number] -[birth year] 54 M [facility] Exm Date: JUL 23, 2020@09:50 Req Phys: BCUKY RABAGO Loc : LIT PACT F (Req'g Loc) Img Loc : ULTRASOUND (OOS) Service : Unknown (Case 42 COMPLETE) ULTRASO UND RUQ (GB,LIVER,BILIARY)([place] Detailed) CPT:08743 Reason for Study: evaluate for artifact vs lesion Clinical History: Impression: A nonspecific hypoattenuating area/l esion versus volume averaging artifact in the left hepat ic dome. Consider further evaluation with an ultrasound. Report Status: Verified Da te Reported: JUL 23, 2020 Da te Verified: JUL 23, 2020 Mastic Man E-Sig:/ES/SERENITY ANDERSON Report: Ultrasound -- abdomen (RUQ): The current study is correlated with a [facility] CT of 07/16/2020. The liver is [...] Primary Interpreting Staff: SERENITY ANDERSON, RADIOLOGY ATTENDING (Darci ) /BRIAN Jul 16, 2020 10:[address] CHEST (INCLUDES ADRENALS): CARAZELDA ALEAH ROSSY [place] [place] [id number] -[birth year] 54 M [facility] Exm Date: JUL 16, 2020@10:25 Req Phys: HIMA,BUCKY Lucía Loc : LIT PACT F (Req'g Loc) Img Loc : CT SCAN (OOS) Service : Unknown (Case 52 COMPLETE) CT THOR AX W/O CONT (CT Detailed) CPT:36127 Reason for Study: edvaluate ascendnng aorti c aneurysm Clinical History: No contrast allergy echocardiogram indicates dilation of ascen ding aorta has increased from 4.7cm to 5 cm. [facility] without contrast to verify a ccuracy of echo interpretation. results will determine need to go to [facility] so please do this on an urgent basis BUN: 30 (04/26/20 11:23) CREATI: 0.84 (04/26/20 11:23) eGFR 04/26/20 11:23 91 Weight: 175.4 lb [79.7 kg] (04/04/2020 09: 30) BODY MASS INDEX - APR 04, 2020@09:30:55 25.2 Pager number: [phone] STAT orders MUST be víctor led to RADIOLOGY [id number] to speak to the appropriate electrical instrumentation technician. Indications - Other: increase in ascendnin g aorta dilation Report Status: Verified Da te Reported: JUL 16, 2020 Da te Verified: JUL 16, 2020 Mastic Man E-Sig:/ELIZABETH/ZELDA MARROQUIN Report: CT THORAX W/O CONT [...] gland appear unremarkable. Airways/Lungs/Pleura: No suspicious endot kosntantin or endobronchial lesion. Mild biapical scarri ng [...] NEEDED Primary Interpreting Staff: ZELDA MARROQUIN Staff (Mastic Man) / Encounter Notes: All associated encounter notes This section contains the clinical notes associated to the Encounter. Date/Time Encounter Note(s) Provider Source Jun 27, 2020 09:36 AM PRIMARY CARE ADMINISTRATIVE NOTE: AYUSH ALAMO [facility] LOCAL TITLE: Administrative Note/Primary Care STANDARD TITLE: PRIMARY CARE ADMINISTRATIVE NOTE DATE OF NOTE: JUN 27, 2020@09:36 ENTRY DATE: JUN 27, 2020@09:36:11 AUTHOR: AYUSH ALAMO EXP COSIGNER: URGENCY: STATUS: COMPLETED Administrative Note/Primary Care Has ADDE NDA Patient returned LIT PACT F phone call at 9:07 AM. No other info was on message. /elizabeth/ AYUSH ALAMO [facility] Signed: 06/27/2020 09:37 Receipt Acknowledged By: 06/27/2020 12:48 /es/ JENY ARELLANO * AWAITING SIGNATURE * YESY MOORE * AWAITING SIGNATURE * SHAHID JARAMILLO 06/27/2020 12:46 /elizabeth/ BUCKY RABAGO Physician 06/27/2020 ADDENDUM STATUS: COMPLETED pt contacted and results of echo reviewed with him as well as recommendeation to proceed to [place] for further evaluation for aor tic root dolation at 5cm. he understands and agrees. /elizabeth/ BUCKY RABAGO Physician Signed: 06/27/2020 12:47
--- OUTSIDE RECORDS SUMMARY | 2020-09-17 11:44 | XMS_ITS | Encounter Summary ---
:1950 Author Organization Department [facility] Address [address] [place] [address] Care Team Providers Name Role Phone BUCKY [...] MEDICARE MEDICARE PART Jul 15, PART A [id number] STEPHANIE JerriInder PATIENT (WNR) (M) A 2016 [id number] ILLIAM MEDICARE MEDICARE PART Jul 15, PART A [id number] STEPHANIE GuthrieInder PATIENT (WNR) (M) A 2016A 1 ILLIAM MEDICARE MEDICARE PART Jul 15, PART A [id number] STEPHANIE JerriW PATIENT (WNR) (M) A 2016 86A 1 ILLIAM Selected Encounter This section includes the information on record at [place] for the Encounter. Date/Time Encounter Type Encounter Description Reason Provider Source Jul 23, 2020 06:07 Outpatient Encounter PRIMARY CARE/MEDICINE PM IHE Encounter Template Text not used by [place] Plan of Treatment: Future Appointments (+ 6 months) and Future Tests (+/- 45 days) The Plan of Treatment section includes future care activities for the patient from all [place] treatment facilities. This section includes future appointments and future orders which are active, pending or scheduled.Active, Pending, and Scheduled Orders This section includes a listing of several types of active, pending, and scheduled orders, including clinic medications orders, diagnostic test orders, procedure orders and cons ult orders; where the start date of the order is 45 days before the date of the Encounter or 45 days after the date of the Encounter. The data comes from all [facility]. Test Date/Time Test Type Test Details Facility Name Jun 18, 2020 05:16 PM Consult Order VASCULAR SURGERY [facility] OUTPATIENT Cons [employer] Reader's Choice Social History: Smoking Status (Most current) and Tobacco Use (All prior to encounter date) This section includes the most current, and the historical, smoking and tobacco-related health factors from the [place] facility where the Encounter took place.Current Smoking Status This section includes the most current smoking, or tobacco-related health factor, from the [place] facility where the Encounter took place. Date/Time Current Smoking Status Comment Facility Oct 04, 2019 10:30 AM [place]-TOBACCO NEVER USED [facility] Tobacco Use History This section includes a history of the smoking, or tobacco-related health factors, that were collected on or before the date of the Encounter. The data comes from the [place] facility where the Encounter took place. Date/Time Smoking Status/Tobacco Use Comment [facility] Apr 01, 2018 11:56 AM [place]-TOBACCO FORMER USER [facility] Apr 01, 2018 11:56 AM [place]-TOBACCO QUIT 15 YRS OR MORE [facility] Radiology Reports: +/- 30 days of [...] the Encounter. The data comes from all [place] treatment facilities. Date/Time Radiology Report Provider Source Jul 23, 2020 09:50 AM ULTRASOUND RUQ (GB,LIVER,BILIARY): Ghassan ANDERSON [facility] [place] [id number] -[birth year] 54 M [facility]3] Exm Date: JUL 23, 2020@09:50 Req Phys: HIMA,BUCKY Pat Loc : LIT PACT F (Req'g Loc) Img Loc : ULTRASOUND (OOS) Service : Unknown (Case 42 COMPLETE) ULTRASO UND RUQ (GB,LIVER,BILIARY)([place] Detailed) CPT:74135 Reason for Study: evaluate for artifact vs lesion Clinical History: Impression: A nonspecific hypoattenuating area/l esion versus volume averaging artifact in the left hepat ic dome. Consider further evaluation with an ultrasound. Report Status: Verified Da te Reported: JUL 23, 2020 Da te Verified: JUL 23, 2020 Salsa Dance Instructor E-Sig:/ES/SERENITY ANDERSON Report: Ultrasound -- abdomen (RUQ): The current study is correlated with a [facility] CT of 07/16/2020. The liver is within [...] Primary Interpreting Staff: SERENITY ANDERSON, RADIOLOGY ATTENDING (Salsa Dance Instructor ) /BRIAN Jul 16, 2020 10:[address] CHEST (INCLUDES ADRENALS): ZELDA MARROQUIN ROSSY Trina [place] [id number] -[birth year], [birth year] 54 M [facility]3] Exm Date: JUL 16, 2020@10:25 Req Phys: BUCKY RABAGO Loc : LIT PACT F (Req'g Loc) Img Loc : CT SCAN (OOS) Service : Unknown (Case 52 COMPLETE) CT THOR AX W/O CONT (CT Detailed) CPT:64662 Reason for Study: edvaluate ascendnng aorti c aneurysm Clinical History: No contrast allergy echocardiogram indicates dilation of ascen ding aorta has increased from 4.7cm to 5 cm. [facility] scan chest [...] RADIOLOGY [id number] to speak to the appropriate composite technician. Indications - Other: increase in ascendnin g aorta dilation Report Status: Verified Da te Reported: JUL 16, 2020 Da te Verified: JUL 16, 2020 Salsa Dance Instructor E-Sig:/ES/ZELDA MARROQUIN Report: CT THORAX W/O CONT [...] SIGNIFICANT ABNORMALITY ATTENTION NEEDED Primary Interpreting Staff: EZLDA MARROQUIN, Staff (Salsa Dance Instructor) / Encounter Notes: All associated encounter notes This section contains the clinical notes associated to the Encounter. Date/Time Encounter Note(s) Provider Source Jul 23, 2020 06:07 PM LETTERS: BUCKY RABAGONEW [facility] LOCAL TITLE: Letter to Patient - [place] STANDARD TITLE: LETTERS DATE OF NOTE: JUL 23, 2020@18:07 ENTRY DATE: JUL 23, 2020@18:07:13 AUTHOR: BUCKY RABAGO EXP COSIGNER: URGENCY: STATUS: COMPLETED [facility] [address] [place] [address] JUL 23, 2020 [address], [place] [address] Dear Mr. Villegas, Attached are the results of your recent ultrasou nd on 07/23/2020. Impression: 1. 2.2 cm echogenic lesion of the liver d ome abutting the middle hepatic vein and IVC junction likely repre senting a hemangioma. A six-month follow-up ultrasound is recommen ded to confirm this impression - I'll order followup test. 2. 1.0 and 0.9 cm subtle echogenic [...] at the time the patient's follow-up ultrasound. Please don't hesitate to call if you have any qu estions or concerns, . Sincerely, BUCKY RABAGO [facility]
--- OUTSIDE RECORDS SUMMARY | 2020-09-17 11:44 | XMS_ITS | Encounter Summary ---
:1950 Author Organization [facility] Address [address] [place] [id number] Care Team Providers Name Role Phone HIMA [...] MEDICARE MEDICARE PART Jul 15, PART A [id number] Inder WADE PATIENT (WNR) (M) A 2016 [id number] ILLIAM MEDICARE MEDICARE PART Jul 15, PART A [id number] BULLOC Inder Guthrie PATIENT (WNR) (M) A 2016 86A 1 ILLIAM MEDICARE MEDICARE PART Jul 15, PART A [id number] BULLAURY GuthrieW PATIENT (WNR) (M) A 2016 86A 1 ILLIAM Selected Encounter This section includes the information on record at [place] for the Encounter. Date/Time Encounter Type Encounter Reason Provider Source Description Jun 15, 2020 Outpatient CARDIAC ECHO ICD-10-CM I71.6 HOLA SOLER 09:30 AM Encounter Thoracoabdominal TT aortic aneurysm, without rupture with Provider Comments: Thoracoabdominal aortic aneurysm, without rupture IHE Encounter Template Text not used by [facility] Assessments - Encounter Diagnoses This section includes the primary and secondary diagnoses documented forthe Encounter. Date/Time Primary/Secondary Diagnosis Name Provider Source Diagnosis Jun 15, 2020 PRIMARY Thoracoabdominal [facility] 10[facility]19 AM aortic aneurysm, [facility] without rupture Plan of Treatment: Future Appointments [...] 20 appointments. The data comes from all [facility]. Appointment Date/Time Appointment Type Appointment Facili ty Name Jul 16, 2020 10:30 AM AMBULATORY - NONE [facility] Jul 23, 2020 10:00 AM AMBULATORY - NONE [facility] Active, Pending, and Scheduled Orders This section includes a listing of several types of active, pending, and scheduled orders, including clinic medications orders, diagnostic test orders, procedure orders and consult orders; where the start date of the order is 45 days before the date of the Encounter or 45 days after the date of the Encounter. The data comes from all [place] treatment [facility]. Test Date/Time Test Type Test Details Facility Name Jun 18, 2020 05:16 PM Consult Order VASCULAR SURGERY [facility] OUTPATIENT Cons Pastry Wrapper's Choice
--- OUTSIDE RECORDS SUMMARY | 2020-09-17 11:44 | XMS_ITS | Encounter Summary ---
:1950 [address] Department [facility] Address [address] [place] [id number] Care Team Providers Name Role Phone BUCKY [...] MEDICARE MEDICARE PART Jul 15, PART A [id number] Inder WADE PATIENT (WNR) (M) A 2016 [id number] ILLIAM MEDICARE MEDICARE PART Jul 15, PART A [id number] BULLAURY Inder Guthrie PATIENT (WNR) (M) A 2016A 1 ILLIAM MEDICARE MEDICARE PART Jul 15, PART A [id number] BULLAURY JerriW PATIENT (WNR) (M) A 2016A 1 ILLIAM Selected Encounter This section includes the information on record at [place] for the Encounter. Date/Time Encounter Type Encounter Description Reason Provider Source Jun 15, 2020 09:30 CP Cardiac ECHO CARDIOLOGY AM (TTE) IHE Encounter Template Text not used by [place] Plan of Treatment: Future Appointments (+ 6 months) and Future Tests (+/- 45 days) The Plan of Treatment section includes future care activities for the patient from all [place] treatment facilities. This section includes future appointments and future orders which are active, pending or scheduled.Future Appointments This section includes appointments that were scheduled to occur 6 months from the date of the Encounter, up to a maximum of 20 appointments. The data comes from all [facility]. Appointment Date/Time Appointment Type Appointment Facili ty Name Jul 16, 2020 10:30 AM AMBULATORY - NONE [facility] Jul 23, 2020 10:00 AM AMBULATORY - NONE [facility] Active, Pending, and Scheduled Orders This section includes a listing of several types of active, pending, and scheduled orders, including clinic medications orders, diagnostic test orders, procedure orders and consult orders; where the start date of the order is 45 days before the date of the Encounter or 45 days after the date of the Encounter. The data comes from all [place] treatment facilities. Test Date/Time Test Type Test Details Facility Name Jun 18, 2020 05:16 PM Consult Order VASCULAR SURGERY [facility] OUTPATIENT Cons Content Management Specialist's Choice Surgical Procedures: All associated to the encounter This section includes all Surgical Procedures and Surgical Procedure Notes associated to the Encounter.Surgical Procedures This section includes all Surgical Procedures associated to the Encounter.Surgical Procedure Date/Time Procedure Procedure Type Procedure Provider Source Qualifiers Jun 15, 2020 CP [facility] 09:28 AM (TTE) E PROXY [facility] SERVICE Surgical Notes This section includes all Surgical Notes associated to the Procedure. Date/Time Surgical Procedure Note Provider Jun 15, 2020 11:00 AM CARDIOLOGY DIAGNOSTIC STUDY REPORT: CL INICAL,DEVICE PROXY SERVICE LOCAL TITLE: Cardiology Echo Report (CP ) STANDARD TITLE: CARDIOLOGY DIAGNOSTIC ST UDY REPORT DATE OF NOTE: JUN 15, 2020@11:00:03 ENT RY DATE: JUN 15, 2020@11:00:03 AUTHOR: CLINICAL,DEVICE PRO EXP C OSIGNER: URGENCY: STATUS: COMPLETED PROCEDURE SUMMARY CODE: Machine Resulted DATE/TIME PERFORMED: JUN 15, 2020@09:28: 0 DOCUMENT IN VISTA IMAGING SEE FULL REPORT IN VISTA IMAGING SIGNATURE NOT REQUIRED SEE SIGNATURE IN VISTA IMAGING (Xcelera (TTE)) AUTO-INSTRUMENT DIAG NOSIS Procedure: Adult Administrative Closure: 06/15/2020 by: Clinical,Device Proxy Service Encounter Notes: All associated encounter notes This section contains the clinical notes associated to the Encounter. Date/Time Encounter Note(s) Provider Source Jun 15, 2020 11:00 AM CARDIOLOGY DIAGNOSTIC STUDY REPORT: ALEAH BLAIR [facility] LOCAL TITLE: Cardiology Echo Report (CP) STANDARD TITLE: CARDIOLOGY DIAGNOSTIC STUDY REPO RT DATE OF NOTE: JUN 15, 2020@11:00:03 ENTRY DATE: JUN 15, 2020@11:00:03 AUTHOR: CLINICAL,DEVICE PRO EXP COSIGNER: URGENCY: STATUS: COMPLETED PROCEDURE SUMMARY CODE: Machine Resulted DATE/TIME PERFORMED: JUN 15, 2020@09:28:0 DOCUMENT IN VISTA IMAGING SEE FULL REPORT IN VISTA IMAGING SIGNATURE NOT REQUIRED SEE SIGNATURE IN VISTA IMAGING (Xcelera (TTE)) AUTO-INSTRUMENT DIAGNOSIS Procedure: Adult Administrative Closure: 06/15/2020 by: Clinical,Device Proxy Se murcia
--- OUTSIDE RECORDS SUMMARY | 2020-09-17 11:44 | XMS_ITS | Encounter Summary ---
:1950 Author Organization Department [facility] Address [address] [place] [address] Care Team Providers Name Role Phone BUCKY [...] MEDICARE MEDICARE PART Jul 15, PART A [id number] STEPHANIE JerriInder PATIENT (WNR) (M) A 2016 [id number] ILLIAM MEDICARE MEDICARE PART Jul 15, PART A [id number] STEPHANIE GuthrieInder PATIENT (WNR) (M) A 2016A 1 ILLIAM MEDICARE MEDICARE PART Jul 15, PART A [id number] STEPHANIE JerriW PATIENT (WNR) (M) A 2016A 1 ILLIAM Selected Encounter This section includes the information on record at [place] for the Encounter. Date/Time Encounter Type Encounter Description Reason Provider Source Jun 18, 2020 05:10 Outpatient Encounter PRIMARY CARE/MEDICINE PM IHE Encounter Template Text not used by [place] Plan of Treatment: Future Appointments (+ 6 [...] 20 appointments. The data comes from all [facility]. Appointment Date/Time Appointment Type Appointment Facili ty Name Jul 16, 2020 10:30 AM AMBULATORY - NONE [facility] Jul 23, 2020 10:00 AM AMBULATORY - NONE [facility] Active, Pending, and Scheduled Orders This section includes a listing of several types of active, pending, and scheduled orders, including clinic medications orders, diagnostic test orders, procedure orders and consult orders; where the start date of the order is 45 days before the date of the Encounter or 45 days after the date of the Encounter. The data comes from all [facility]. Test Date/Time Test Type Test Details Facility Name Jun 18, 2020 05:16 PM Consult Order VASCULAR SURGERY [facility] OUTPATIENT Cons [employer] Coach's Choice Social History: Smoking Status (Most current) and Tobacco Use (All prior to encounter date) This section includes the most current, and the historical, smoking and tobacco-related health factors from the [place] facility where the Encounter took place.Current Smoking Status This section includes the most current smoking, or tobacco-related health factor, from the [place] facility where the Encounter took place. Date/Time Current Smoking Status Comment Facility Oct 04, 2019 10:30 AM [place] NEVER USED [facility] Tobacco Use History This section includes a history of the smoking, or tobacco-related health factors, that were collected on or before the date of the Encounter. The data comes from the [place] facility where the Encounter took place. Date/Time Smoking Status/Tobacco Use Comment [facility] Apr 01, 2018 11:56 AM [place] FORMER USER [facility] Apr 01, 2018 11:56 AM [place] QUIT 15 YRS OR MORE [facility] Radiology Reports: +/- 30 days of [...] the Encounter. The data comes from all [facility] treatment facilities. Date/Time Radiology Report Provider Source Jul 16, 2020 10:[address] CHEST (INCLUDES ADRENALS): CARAZELDA ALEAH ROSSY JCT GRADY VILLEGAS [id number] -[birth year], 54 M [facility] Exm Date: JUL 16, 2020@10:25 Req Phys: BUCKY RABAGO Loc : LIT PACT F (Req'g Loc) Img Loc : CT SCAN (OOS) Service : Unknown (Case [id number] COMPLETE) CT THOR AX W/O CONT (CT Detailed) CPT:32230 Reason for Study: edvaluate ascendnng aorti c aneurysm Clinical History: No contrast allergy echocardiogram indicates dilation of ascen ding aorta has increased from 4.7cm to 5 cm. [facility] surgery request CT scan chest without contrast to verify a ccuracy of echo interpretation. results will determine need to go to [facility] n so please do this on an urgent basis BUN: 30 (04/26/20 11:23) CREATI: 0.84 (04/26/20 11:23) eGFR 04/26/20 11:23 91 Weight: 175.4 lb [79.7 kg] (04/04/2020 09: 30) BODY MASS INDEX - APR 04, 2020@09:30:55 25.2 Pager number: [phone] STAT orders MUST be víctor led to RADIOLOGY [phone] to speak to the appropriate military technician. Indications - Other: increase in ascendnin g aorta dilation Report Status: Verified Da te Reported: JUL 16, 2020 Da te Verified: JUL 16, 2020 Gym Manager E-Sig:/ES/ZELDA MARROQUIN Report: CT THORAX W/O CONT [...] NEEDED Primary Interpreting Staff: ZELDA MARROQUIN Staff (Gym Manager) / Encounter Notes: All associated encounter notes This section contains the clinical notes associated to the Encounter. Date/Time Encounter Note(s) Provider Source Jun 18, 2020 05:10 PM LETTERS: BUCKY RABAGO [facility] LOCAL TITLE: Letter to Patient - [facility] TITLE: LETTERS DATE OF NOTE: JUN 18, 2020@17:10 ENTRY DATE: JUN 18, 2020@17:10:29 AUTHOR: BUCKY RABAGO EXP COSIGNER: URGENCY: STATUS: COMPLETED [facility] [address] [place] [address] JUN 18, 2020 MR. GRADY V[place]LEGAS [address] [place] [id number] Dear Mr. Villegas, The results of your recent echocardiogram indica te that the dilation of your ascending aorta has increased from 4.7cm to 5 cm . I would like to place a vascular consult for you just to make sure you are on their radar in the event that this continues to increase in size. Please don't hesitate to call if you have any qu estions or concerns, . Sincerely, BUCKY RABAGO Physician [facility]
[2020-09-18 19:36] LABS: COVID-19 RT-PCR UVMMC Result Negative (Negative)
--- NOTE | 2020-09-19 09:45 | NUR.NOTE ---
Contacted patient @ [phone], verified identity and relayed negative covid results to patient.
== END 2020-09-17 11:39 | disposition home or self-care (01) ==
LOC: ER 11:38
PROVIDERS: Emergency Provider Physician Assistant; PCP Internal Medicine
DX: J06.9 Acute upper respiratory infection, unspecified (principal); R05 Cough; B34.9 Viral infection, unspecified; Z03.818 Encounter for observation for suspected exposure to other biological agents ruled out; I10 Essential (primary) hypertension
CPT/HCPCS: 93005; 99284; U0003; 71045; 93010; 99285

== ENCOUNTER 2024-11-04 21:30 | Outpatient (REF) | payer SELFPAY ==
[2024-11-04 21:53] LABS: RBC >50 HPF (0-2)
[2024-11-04 21:55] LABS: C & S Indicated? C&S Done As Ordered
== END 2024-11-04 21:31 | disposition home or self-care (01) ==
LOC: LBN 21:30
PROVIDERS: PCP Internal Medicine; Visit Provider Physician Assistant Medical
DX: R31.9 Hematuria, unspecified (principal)
CPT/HCPCS: 81015; 87086

== ENCOUNTER 2025-01-21 03:27 | Emergency (ER) | payer OTHER, SELFPAY ==
[2025-01-21 03:30] VITALS: BP 165/90; PULSE 58; RESP 16; TEMP 36.4; O2SAT 98
[2025-01-21 03:42] LABS: Bilirubin Negative (Negative); Blood Moderate (Negative); Clarity Sl Cloudy (Clear); Glucose Negative (Negative); Ketones Negative (Negative); Leukocyte Esterase Negative (Negative); Nitrite Negative (Negative); Urobilinogen 0.2 mg/dL (Up to 0.2)
[2025-01-21 03:47] LABS: WBC 0-2 HPF (0-5)
[2025-01-21 03:48] LABS: Bacteria Few HPF (Negative); C & S Indicated? No; Casts Negative LPF (Negative); Crystals Negative HPF (Negative); Epithelial Cells Negative HPF (Negative); Mucus Negative (Negative); RBC 20-50 HPF (0-2)
--- NOTE | 2025-01-21 03:49 | ED.GENADUL_ITS ---
Discharge Plan Disposition Patient Disposition: Home Condition: Good Discharge Details Clinical Impression: Kidney stone on right side Primary Care Provider: Precious Gallagher ED Provider: Adithya Rodrigues Home Meds and New Rx's Prescriptions: New ketorolac 10 mg tablet 10 mg PO TID 5 Days Qty: 15 0RF tamsulosin [Flomax] 0.4 mg capsule 0.4 mg PO DAILY Qty: 10 0RF No Action multivitamin Tablet 1 tab PO QAM metoprolol succinate 50 mg Tablet Extended Release 24 Hr 50 mg PO DAILY aspirin [Aspir-81] 81 mg Tablet,Delayed Release (Dr/Ec) 81 mg PO DAILY [id number]-C-garry-bosw [Glucosamine-Chondroitin 3X] 750-625-30 mg Tablet 1 tab PO DAILY Discharge Instructions Instructions: Kidney Stone Diet, Kidney Stone, Adult ED Additional Instructions: At this time you have evidence of a small kidney stone. This is likely the cause of your symptoms. This should pass within the next 12 to 48 hours, if not earlier. Please drink plenty of fluids, 10 to 12 cups/day at least. Please take 10mg of Ketorolac every 8 hours and 1000 mg of Tylenol every 6 hours as needed for pain. It would be best not to take the aspirin while taking the ketorolac. These are the maximum doses of these medicines. Please take the Flomax as directed. This will help in expediting the passage of your kidney stone. If your pain stops, you can stop taking the Flomax. Please strain your urine to collect the stone. This can then be analyzed by your family doctor. If you do not have resolution of your symptoms after 48 to 72 hours please follow-up closely with your family doctor or return here for reassessment. If you notice any worsening of your symptoms, or any new symptoms such as inability to urinate, vomiting, diarrhea, fever, chills, shortness of breath, chest pain, numbness, weakness, or fainting , please return immediately to the emergency department for reevaluation. Please follow up with your primary care provider as soon as possible for reassessment and reevaluation. As always, it was a pleasure participating in your medical care today. Referrals: Precious Gallagher [Primary Care Provider] - HPI General Date/Time Provider Initiated Documentation: 01/21/25 03:40 . HPI Narrative: This is a pleasant 74-year-old male with a past medical history of atrial fibrillation only on daily aspirin, metoprolol, high cholesterol, who presents today for evaluation of dysuria and right back/flank pain. On 11/05/2024 the patient visited [facility] urgent care for evaluation of dysuria and hematuria. He was found to have trace leuk esterase, he was treated with cefuroxime. Symptoms resolved on their own. He has been asymptomatic until this evening at around 1030. He noticed some pain and burning with urination with associated frequency right back and flank pain. No particular aggravating or relieving factors. He denies vomiting or diarrhea. No fever or chills. No other complaints. No known history of kidney stones in the past. No other modifying factors. Related Data Home Medications ?Medication ?Instructions ?Recorded ?Confirmed aspirin 81 mg tablet,delayed 81 mg PO DAILY 09/17/20 01/21/25 release glucosamine 750 mu-ptfncebdco-tma 1 tab PO DAILY 09/17/20 01/21/25 no.1 625 mg-C 30 yn-goge-xauy tablet (Glucosamine-Chondroitin 3X) metoprolol succinate 50 mg 50 mg PO DAILY 09/17/20 01/21/25 tablet,extended release 24 hr multivitamin 1 tab PO QAM 09/17/20 01/21/25 ketorolac 10 mg tablet 10 mg PO TID 5 days #15 tabs 01/21/25 tamsulosin 0.4 mg capsule (Flomax) 0.4 mg PO DAILY #10 caps 01/21/25 Previous Rx's ?Medication ?Instructions ?Recorded ketorolac 10 mg tablet 10 mg PO TID 5 days #15 tabs 01/21/25 tamsulosin 0.4 mg capsule (Flomax) 0.4 mg PO DAILY #10 caps 01/21/25 Allergies Allergy/AdvReac Type Severity Reaction Status Date / Time morphine AdvReac shakey Unverified 01/21/25 03:33 General Stated Complaint: Urinary EZRA: 4 Exam Narrative Exam Narrative: 1.Const: Well-nourished, Well-developed, appearing stated age 2.Eyes: PERRL, no conjunctival injection, and symmetrical lids. 3.ENT: Atraumatic external nose and ears. Moist MM. Neck: Symmetric, trachea midline, No thyromegaly. 4.CVS: +S1/S2, Peripheral pulses 2+ and equal in all extremities. Brisk capillary refill in all extremities. 5.RESP: Unlabored respiratory effort. Clear to auscultation bilaterally. No wheezes rales or rhonchi 6.GI: Soft, Nontender/Nondistended, No hepatosplenomegaly. No guarding or rebound. No CVA tenderness 7.MSK: Normocephalic/Atraumatic, Extremities w/o deformity or ttp No cyanosis or clubbing, Normal movement of all extremities 8.Skin: Warm, Dry. No rashes or lesions. 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 Sensation grossly intact, no focal neurologic deficits. 10.Psych: (AAO) x3. Appropriate mood and affect Course Vital Signs Vital signs: Vital Signs Temperature 36.4 C 01/21/25 03:30 Pulse 58 L 01/21/25 03:30 Respiratory Rate 16 01/21/25 03:30 Blood Pressure 165/90 H 01/21/25 03:30 Pulse Oximetry 98 01/21/25 03:30 Temperature 36.4 C 01/21/25 03:30 Temperature Source Temporal Artery Scan 01/21/25 03:30 Pulse 58 L 01/21/25 03:30 Respiratory Rate 16 01/21/25 03:30 Blood Pressure 165/90 H 01/21/25 03:30 Blood Pressure Position Sitting 01/21/25 03:30 Pulse Oximetry 98 01/21/25 03:30 Oxygen Delivery Method Room Air 01/21/25 03:30 Oxygen Flow Rate 0 01/21/25 03:30 Lab/Test Results Lab/Test Results: Laboratory Tests Range/Units 01/21/25 03:37 Urine Color (Yellow) Yellow Urine Clarity (Clear) Sl Cloudy Urine pH (5-8) 7.0 Ur Specific Spearman (1.005-1.025) 1.020 Urine Protein (Neg-Trace) mg/dL Negative Urine Ketones (Negative) mg/dL Negative Urine Blood (Negative) Moderate H Urine Nitrite (Negative) Negative Urine Bilirubin (Negative) Negative Urine Urobilinogen (Up to 0.2) mg/dL 0.2 Ur Leukocyte Esterase (Negative) Negative Urine RBC (0-2) HPF 20-50 H Urine WBC (0-5) HPF 0-2 Ur Epithelial Cells (Negative) HPF Negative Urine Crystals (Negative) HPF Negative Urine Bacteria (Negative) HPF Few Urine Casts (Negative) LPF Negative Urine Mucus (Negative) Negative Ur Culture Indicated? No Urine Glucose (Negative) mg/dL Negative Medical Decision Making This is a pleasant 74-year-old male with a past medical history of atrial fibrillation only on daily aspirin, metoprolol, high cholesterol, who presents today for evaluation of dysuria and right back/flank pain. On 11/05/2024 the patient visited [facility] urgent care for evaluation of dysuria and hematuria. He was found to have trace leuk esterase, he was treated with cefuroxime. Symptoms resolved on their own. He has been asymptomatic until this evening at around 1030. He noticed some pain and burning with urination with associated frequency right back and flank pain. No particular aggravating or relieving factors. He denies vomiting or diarrhea. No fever or chills. No other complaints. No known history of kidney stones in the past. No other modifying factors. Exam demonstrates well-appearing male, no abdominal suprapubic or CVA tenderness on percussion. Concern for UTI, urolithiasis, kidney intrinsic pathology. Will get CT scan to rule out stone, check UA for infection, get basic labs to evaluate for renal injury, monitor closely and reassess. 5 AM Laboratory workup shows excellent kidney function, GFR of 94% with a creatinine of 0.8, urinalysis shows no evidence of infection, no significant WBCs, nitrates or leuk esterase. He does have notable RBCs. CT scan was ordered and shows evidence of an 8 mm stone in the distal right ureter at the ureterovesicular junction, no evidence of hydronephrosis or hydroureter for that matter. No evidence of obstructive uropathy. Patient still has no significant pain. Will give a dose of Toradol and Flomax here to help with stone expulsion. Will send prescription for Toradol and Flomax for home. Will place urology referral secondary to the size of the stone. Patient feels well and [facility]. Patient stable for discharge. Discussed red flags for which to return. I have extensively reviewed the treatment plan and discharge instructions with the patient. I have addressed all patient concerns at this time. The patient was made aware of what symptoms to monitor for that would warrant a return to the emergency department. Discussed the plan with the patient, they demonstrate verbal understanding and agreement with our assessment and plan at this time. The documentation in this chart was dictated using [employer] dictation software. Please excuse any dictation errors. FINDINGS: Lungs: Lung bases are clear. Liver: The liver has a normal appearance. Low-density circumscribed foci are present within the superior liver suggesting the presence of hepatic cysts which are incompletely characterized on this noncontrast CT. Gallbladder and biliary ducts: Multiple calcified stones are present in the gallbladder fundus. No gallbladder wall thickening or pericholecystic fluid Pancreas: The pancreas demonstrates normal size. No pancreatic ductal dilatation. Spleen: Normal. No splenomegaly. Adrenal glands: The adrenal glands have a normal appearance. Kidneys and ureters: The kidneys are normal in size. Subcentimeter nonobstructing calculi are present within the lower pole of the left kidney measuring up to 3 mm in diameter. A calculus is visualized within the distal right ureter at the level of the ureterovesicular junction which measures 8 mm in length (series 2/image 312). There is no associated hydroureter or hydronephrosis. Stomach and bowel: The bowel demonstrates overall normal caliber and wall thickness. There are extensive diverticular outpouchings throughout the colon. No mucosal thickening or pericolonic fat stranding. Appendix: The appendix is thin walled and gas filled. Intraperitoneal space: Unremarkable. No free air. No significant fluid collection. Vasculature: There are scattered atheromatous calcifications throughout the aorta and iliac arteries. Lymph nodes: No enlarged lymph nodes. Urinary bladder: Moderate wall thickening is present along the anterior aspect of the bladder. There is some perivesicular fat stranding present in this region. There are likely small dependent calculi within the posterior bladder. Reproductive: Unremarkable as visualized. Bones/joints: Bones have a normal appearance. No acute fracture or suspicious bone lesion. Soft tissues: Unremarkable. IMPRESSION: 1. Distal right ureterolithiasis at the right ureterovesicular junction. No hydronephrosis or hydroureter suggesting this represents a nonobstructive ureteral calculus. 2. Normal appendix. 3. Severe diverticulosis. No acute diverticulitis. 4. Nonobstructive nephrolithiasis. 5. Cholelithiasis. No findings to suggest choledocholithiasis or acute cholecystitis. Thank you for allowing us to participate in the care of your patient. Dictated and Authenticated by: Norma Valerio MD 01/21/2025 4:41 AM Eastern Time ([place] & [place]) Quality:SDOH Health Related Social Needs: No Data to Display PFSH All Active Problems (Updated 01/21/25 @ 04:49 by Adithya Rodrigues DO) Kidney stone on right side (Acute) Skin tag (Acute) large irritating belt line Medical History (Updated 01/21/25 @ 04:49 by Adithya Rodrigues DO) CHF (congestive heart failure) Hyperlipidemia History of ST elevation myocardial infarction (STEMI) Aneurysm, thoracic aortic High cholesterol HTN (hypertension) Atrial fibrillation Surgical History (Updated 01/19/24 @ 14:41 by Nany Nugent RN) History of colonoscopy with polypectomy (~11/15/19) per note in chart from [place], repeat 3 yrs [place] w/polypectomy 11/03/2018, large adenomatous polyp in cecum History of tonsillectomy History of hernia repair Social History Smoking/Tobacco Use Status: Never Smoking risk assessment performed?: Yes Alcohol Intake: current Alcohol Intake frequency: 0-2 drinks per day Drug use: Never Do you feel safe at home: Yes Do you feel safe in your relationship?: Yes
[2025-01-21 04:07] LABS: Abs Immature Grans 0.02 10^3/uL (0.0-0.06); Absolute Basophil Count 0.03 10^3/uL (0.0-0.2); Absolute Eosinophil Count 0.19 10^3/uL (0.0-0.7); Absolute Lymphocyte Count 2.15 10^3/uL (1.2-3.4); Absolute Neutrophil Count 3.67 10^3/uL (1.2-6.7); Basophils % 0.5 %; Eosinophils % 2.9 %; HCT 46.4 % (40.0-50.0); HGB 16.4 g/dL (13.5-17.5); Immature Grans % 0.3 %; Lymphocytes % 32.3 %; MCH 33.2 pg (27.0-33.0); MCHC 35.3 % (32.0-36.0); MCV 94 fL (80-95); MPV 10.5 fL (8.0-11.0); Platelet Count 191 10^3/uL (130-400); RBC 4.94 10^6/uL (4.36-5.78); RDW-SD 41.5 fL; WBC 6.66 10^3/uL (4.4-10.8)
--- NOTE | 2025-01-21 04:08 | DI.CT_ITS ---
Exam(s) CT ABDOMEN PELVIS WO EXAM: CT ABDOMEN PELVIS WO CLINICAL HISTORY: right flank pain, eval for stone. TECHNIQUE: Imaging Protocol: Axial computed tomography images with coronal and sagittal reformatted images were created and reviewed CONTRAST MATERIAL: Intravenous: none Oral: None COMPARISON: No exams were available for comparison FINDINGS: VISUALIZED LUNG BASES: No nodules nor pleural effusions evident. ABDOMEN: There is no ascites. LIVER: There are no obvious focal hepatic lesions evident of this noninfused study. GALLBLADDER/BILIARY: There are milk of calcium or small layering calculi on the dependent wall the ga llbladder. Gallbladder wall is not edematous and there is no pericholecystic fluid. CBD is not dila john. PANCREAS: No evidence of pancreatic mass nor dilatation of the pancreatic duct. SPLEEN: Spleen is not enlarged. No obvious intrasplenic lesions. ADRENALS: There are no significant adrenal masses. KIDNEYS:There are a few nonobstructive calculi in lower pole calyx of the left kidney. There are no radiopaque calculi in the right kidney. No hydronephrosis nor hydroureter. However, there is in the pelvis there calcifications which are phleboliths and there is also a 7 millimeter calcification on the right side of the pelvis which is probably a calculus in the lower right ureter. There does not appear to be significant dilatation of the ureter above this level. There also no radiopaque calculi seen within the ipsilateral-right kidney. There is also a small calcification along the dependent w all of the urinary bladder. Prostate gland is enlarged.. ABDOMINAL AORTA: Abdominal aorta is not enlarged. LYMPH NODES: There is no retroperitoneal nor paraaortic adenopathy. ABDOMINAL WALL: No evidence of significant anterior abdominal wall nor inguinal hernia. Right-sided hydrocele incidentally noted in the scrotum. GI: There is no evidence of bowel obstruction, free air, nor abscess. PELVIS: LYMPH NODES: There is no intrapelvic nor inguinal adenopathy. GI: No evidence of appendicitis.There is extensive sigmoid diverticulosis without evidence of obvious acute sigmoid diverticulitis. URINARY BLADDER: Layering milk of calcium in the dependent wall of the bladder. REPRODUCTIVE: Enlarged prostate gland measures 5.5 cm wide. X 4.6 cm AP x 4.8 cm craniocaudal. It i ndents the bladder base. OSSEOUS: Multilevel chronic degenerative disc disease throughout the lumbar spine and degenerative sc oliosis and multilevel facet arthrosis. IMPRESSION: 1. There is a 7 millimeter calculus in the lower right ureter at the ureterovesical junction level. There is no dilatation of the right collecting system above this level. Also no calculi seen in the right kidney. There are, however calculi seen in the Opposite-left kidney. Also layering calcium noted in the dependent aspect of the urinary bladder. 2. Small gallstones. No evidence of acute cholecystitis nor dilatation of the biliary tree. RADIATION DOSE DELIVERED: 438.08mGy.cm Total DLP DATA REPOSITORY: All CT scans at this facility are submitted to the National Radiology Data Registry (NRDR) Dose Index Registry (DIR) with the [employer] ([employer]). RADIATION OPTIMIZATION: All CT scans at this facility use at least one of these dose optimization te chniques: automated exposure control; mA and/or kV adjustment per patient size (includes targeted exa ms where dose is matched to clinical indication); or iterative reconstruction.
[2025-01-21 04:26] LABS: ALT 29 U/L (16-63); AST 23 U/L (15-37); Albumin 4.2 g/dL (3.4-5.0); Alkaline Phosphatase 68 U/L (46-116); Anion Gap 6.5 mmol/L (3-11); BUN 15 mg/dL (7-18); Bilirubin, Total 0.9 mg/dL (0.2-1.0); CO2 29.5 mmol/L (21.0-32.0); CREATININE 0.8 mg/dL (0.70-1.30); Calcium 9.5 mg/dL (8.5-10.1); Chloride 102 mmol/L (98-107); Estimated GFR 94.03 (mL/min/1.73m2); Glucose 99 mg/dL (74-106); Potassium 3.9 mmol/L (3.5-5.1); Sodium 138 mmol/L (136-145); Total Protein 7.5 g/dL (6.4-8.2)
--- NOTE | 2025-01-21 04:42 | DI.VRAD_ITS ---
Addendum created by Norma Valerio MD on 01/21/2025 4:45:16 AM EDT: Impression (continued): 6. Anterior bladder wall thickening and perivesicular fat stranding. Findings may be associated with an acute cystitis. Please correlate with urinalysis. Initial report created on 01/21/2025 4:41:40 AM EDT: PROCEDURE INFORMATION: Exam: CT Abdomen And Pelvis Without Contrast Exam date and time: 01/21/2025 3:58 AM Age: 74 years old Clinical indication: Abdominal pain; Right flank pain, eval for stone. No HX of stones, no gross hematuria TECHNIQUE: Imaging protocol: Computed tomography of the abdomen and pelvis without contrast. Radiation optimization: All CT scans at this facility use at least one of these dose optimization techniques: automated exposure control; mA and/or kV adjustment per patient size (includes targeted exams where dose is matched to clinical indication); or iterative reconstruction. COMPARISON: CR XR PORTABLE CHEST AP 09/17/2020 10:17 AM FINDINGS: Lungs: Lung bases are clear. Liver: The liver has a normal appearance. Low-density circumscribed foci are present within the superior liver suggesting the presence of hepatic cysts which are incompletely characterized on this noncontrast CT. Gallbladder and biliary ducts: Multiple calcified stones are present in the gallbladder fundus. No gallbladder wall thickening or pericholecystic fluid. Pancreas: The pancreas demonstrates normal size. No pancreatic ductal dilatation. Spleen: Normal. No splenomegaly. Adrenal glands: The adrenal glands have a normal appearance. Kidneys and ureters: The kidneys are normal in size. Subcentimeter nonobstructing calculi are present within the lower pole of the left kidney measuring up to 3 mm in diameter. A calculus is visualized within the distal right ureter at the level of the ureterovesicular junction which measures 8 mm in length (series 2/image 312). There is no associated hydroureter or hydronephrosis. Stomach and bowel: The bowel demonstrates overall normal caliber and wall thickness. There are extensive diverticular outpouchings throughout the colon. No mucosal thickening or pericolonic fat stranding. Appendix: The appendix is thin walled and gas filled. Intraperitoneal space: Unremarkable. No free air. No significant fluid collection. Vasculature: There are scattered atheromatous calcifications throughout the aorta and iliac arteries. Lymph nodes: No enlarged lymph nodes. Urinary bladder: Moderate wall thickening is present along the anterior aspect of the bladder. There is some perivesicular fat stranding present in this region. There are likely small dependent calculi within the posterior bladder. Reproductive: Unremarkable as visualized. Bones/joints: Bones have a normal appearance. No acute fracture or suspicious bone lesion. Soft tissues: Unremarkable. IMPRESSION: 1. Distal right ureterolithiasis at the right ureterovesicular junction. No hydronephrosis or hydroureter suggesting this represents a nonobstructive ureteral calculus. 2. Normal appendix. 3. Severe diverticulosis. No acute diverticulitis. 4. Nonobstructive nephrolithiasis. 5. Cholelithiasis. No findings to suggest choledocholithiasis or acute cholecystitis. Dictated and Authenticated by: Norma Valerio MD. Orderin Lilia Haji MD
[2025-01-21] MEDS: Tamsulosin 0.4 MG CAPCR PO (04:55)
[2025-01-21] MEDS: Ketorolac 15 MG/ML VIAL IVP (04:55)
[2025-01-21 05:11] VITALS: BP 181/99; PULSE 57; RESP 19; TEMP 36.6; O2SAT 96
== END 2025-01-21 05:21 | disposition home or self-care (01) ==
LOC: ER 05:26
PROVIDERS: Emergency Provider Student in an Organized Health Care Education/Training Program; PCP Internal Medicine
DX: N20.0 Calculus of kidney (principal); R10.30 Lower abdominal pain, unspecified
CPT/HCPCS: 99284 ×2; 96374; 80053; 74176; 81003; 81015; 85025; J1885